=== PATIENT | male | born 1930 | race Caucasian/White ===

== ENCOUNTER 2017-07-03 06:06 | Emergency (ER) | payer OTHER ==
[2017-07-03] MEDS: ALBUTEROL 0.083% (NEB) 2.5 MG/3 ML AMP NEB (07:03)
[2017-07-03] MEDS: IPRATROPIUM (NEB) 0.5 MG/2.5 ML AMP NEB (07:03)
[2017-07-03 07:23] LABS: ADD MAN DIFF? NO
[2017-07-03 07:24] LABS: BASOPHILS % 0.6 % (0.0-2.0); EOSINOPHILS # 0.8 10^3/ul (0.0-0.5); EOSINOPHILS % 11.1 % (0.0-7.0); HEMOGLOBIN 10.7 g/dl (14.0-18.0); LYMPHOCYTES # 1.4 10^3/ul (0.8-2.9); LYMPHOCYTES % 20.4 % (15.0-51.0); MEAN CORPUSCULAR HEMOGLOBIN 30.8 pg (29.0-33.0); MEAN CORPUSCULAR HGB CONC 33.4 g/dl (32.0-37.0); MEAN CORPUSCULAR VOLUME 92.2 fl (82.0-101.0); MEAN PLATELET VOLUME 10.7 fl (7.4-10.4); MONOCYTE # 0.7 10^3/ul (0.3-0.9); MONOCYTES % 10.2 % (0.0-11.0); NEUTROPHILS % 57.6 % (39.0-77.0); PLATELET COUNT 140 10^3/UL (140-415); RED BLOOD COUNT 3.47 10^6/ul (4.70-6.10); RED CELL DISTRIBUTION WIDTH 14.4 % (11.5-14.5)
[2017-07-03 07:24] LABS: WHITE BLOOD COUNT 6.9 10^3/ul (4.8-10.8)
[2017-07-03 07:44] LABS: ANION GAP 16 (8-16); BLOOD UREA NITROGEN 23 mg/dl (7-20); CALCIUM 8.7 mg/dl (8.4-10.2); CARBON DIOXIDE 20 mmol/L (21-31); CHLORIDE 112 mmol/L (97-110); CREATININE 1.87 mg/dl (0.61-1.24); GLUCOSE 106 mg/dl (70-220); POTASSIUM 5.6 mmol/L (3.5-5.1); SODIUM 142 mmol/L (135-144)
[2017-07-03 07:56] LABS: TROPONIN-I < 0.012 ng/ml (0.000-0.120)
[2017-07-03] MEDS: SOD CHLORIDE 0.9% 500 ML IV (08:27)
== END 2017-07-03 09:48 | disposition home or self-care (01) ==
LOC: E/R 06:06
DX: I83.018 Varicose veins of right lower extremity with ulcer other part of lower leg (principal); R05 Cough; I12.9 Hypertensive chronic kidney disease with stage 1 through stage 4 chronic kidney disease, or unspecified chronic kidney disease; N18.9 Chronic kidney disease, unspecified; J44.0 Chronic obstructive pulmonary disease with (acute) lower respiratory infection; L97.819 Non-pressure chronic ulcer of other part of right lower leg with unspecified severity; L97.829 Non-pressure chronic ulcer of other part of left lower leg with unspecified severity; I83.028 Varicose veins of left lower extremity with ulcer other part of lower leg; Z87.891 Personal history of nicotine dependence; Z79.82 Long term (current) use of aspirin
CPT/HCPCS: 36415; 71045; 80048; 84484; 85025; 93005; 93922; 94664; 99285-25

== ENCOUNTER 2017-07-22 00:47 | Inpatient (IN) | payer OTHER ==
[2017-07-22] MEDS: METHYLPREDNISOLONE 125 MG INJ IV (02:03)
[2017-07-22] MEDS: LEVALBUTEROL (NEB) 1.25 MG/0.5 ML AMP INH (02:09)
[2017-07-22] MEDS: IPRATROPIUM (NEB) 0.5 MG/2.5 ML AMP INH (02:09)
[2017-07-22 02:35] LABS: ADD MAN DIFF? NO
[2017-07-22 02:38] LABS: WHITE BLOOD COUNT 8.8 10^3/ul (4.8-10.8)
[2017-07-22 02:38] LABS: BASOPHIL # 0.1 10^3/ul (0.0-0.1); BASOPHILS % 0.6 % (0.0-2.0); EOSINOPHILS # 0.6 10^3/ul (0.0-0.5); EOSINOPHILS % 7.1 % (0.0-7.0); HEMOGLOBIN 10.4 g/dl (14.0-18.0); LYMPHOCYTES # 0.8 10^3/ul (0.8-2.9); LYMPHOCYTES % 8.5 % (15.0-51.0); MEAN CORPUSCULAR HEMOGLOBIN 31.3 pg (29.0-33.0); MEAN CORPUSCULAR HGB CONC 34.7 g/dl (32.0-37.0); MEAN CORPUSCULAR VOLUME 90.4 fl (82.0-101.0); MEAN PLATELET VOLUME 10.6 fl (7.4-10.4); MONOCYTE # 0.6 10^3/ul (0.3-0.9); NEUTROPHIL # 6.8 10^3/ul (1.6-7.5); NEUTROPHILS % 76.5 % (39.0-77.0); PLATELET COUNT 162 10^3/UL (140-415); RED BLOOD COUNT 3.32 10^6/ul (4.70-6.10); RED CELL DISTRIBUTION WIDTH 13.4 % (11.5-14.5)
[2017-07-22 02:54] LABS: ADD UMIC YES; UR ASCORBIC ACID 40 mg/dL (NEGATIVE); UR BILIRUBIN (Dip) NEGATIVE (NEGATIVE); UR BLOOD (Dip) NEGATIVE (NEGATIVE); UR CLARITY CLEAR (CLEAR); UR COLOR YELLOW (YELLOW); UR GLUCOSE (Dip) NEGATIVE (NEGATIVE); UR KETONES (Dip) NEGATIVE (NEGATIVE); UR LEUKOCYTE ESTERASE (Dip) NEGATIVE Leu/ul (NEGATIVE); UR NITRITE (Dip) NEGATIVE (NEGATIVE); UR RBC 1 /HPF (0-5); UR SPECIFIC GRAVITY (Dip) 1.008 (1.003-1.030); UR TOTAL PROTEIN (Dip) 2+ mg/dl (NEGATIVE); UR UROBILINOGEN (Dip) NEGATIVE (NEGATIVE); UR WBC 1 /HPF (0-5)
[2017-07-22 02:57] LABS: LACTIC ACID 1.7 mmol/L (0.5-2.0)
[2017-07-22 02:57] LABS: ALANINE AMINOTRANSFERASE 26 IU/L (13-69); ALBUMIN 3.8 g/dl (3.3-4.9); ALBUMIN/GLOBULIN RATIO 1.15; ALKALINE PHOSPHATASE 81 IU/L (42-121); ANION GAP 15 (8-16); ASPARTATE AMINO TRANSFERASE 29 IU/L (15-46); BILIRUBIN,INDIRECT 0.6 mg/dl (0-1.1); BILIRUBIN,TOTAL 0.6 mg/dl (0.2-1.3); BLOOD UREA NITROGEN 12 mg/dl (7-20); CALCIUM 8.4 mg/dl (8.4-10.2); CARBON DIOXIDE 24 mmol/L (21-31); CHLORIDE 96 mmol/L (97-110); CREATININE 1.19 mg/dl (0.61-1.24); GLUCOSE 100 mg/dl (70-220); POTASSIUM 4.9 mmol/L (3.5-5.1); SODIUM 130 mmol/L (135-144); TOTAL PROTEIN 7.1 g/dl (6.1-8.1)
[2017-07-22 03:03] LABS: INR 1.07; PT RATIO 1.1
[2017-07-22 03:04] LABS: PARTIAL THROMBOPLASTIN TIME 32.6 Sec (25.0-35.0)
[2017-07-22 03:08] LABS: B-TYPE NATRIURETIC PEPTIDE 6940 PG/ML (0-450); TROPONIN-I 0.049 ng/ml (0.000-0.120)
[2017-07-22] MEDS: LEVOFLOXACIN 750MG/D5W (PMX) 150 ML IVPB (03:16)
[2017-07-22] MEDS: FUROSEMIDE 40 MG INJ IV ×2 (04:32→12:09)
[2017-07-22 04:50] LABS: LACTIC ACID 1.9 mmol/L (0.5-2.0)
[2017-07-22] MEDS ORDERED: NACL 0.9% 3 ML SYG IV (05:00)
[2017-07-22] MEDS ORDERED: DOCUSATE SODIUM 100 MG CAP PO (05:00)
[2017-07-22] MEDS ORDERED: ONDANSETRON 4 MG INJ IV (05:00)
[2017-07-22] MEDS ORDERED: BISACODYL (EC) 5 MG TAB PO (05:00)
[2017-07-22] MEDS: LEVALBUTEROL (NEB) 0.63 MG/3 ML AMP HHN ×5 (05:36→20:31)
[2017-07-22 06:40] LABS: LACTIC ACID 1.7 mmol/L (0.5-2.0)
[2017-07-22] MEDS: LEVOTHYROXINE 50 MCG TAB PO (07:00)
[2017-07-22] MEDS: LORATADINE 10 MG TAB PO (08:50)
[2017-07-22] MEDS: ASCORBIC ACID 500 MG TAB PO (08:51)
[2017-07-22] MEDS: VITAMIN B COMPLEX/VIT C CAP PO (08:51)
[2017-07-22] MEDS: PANTOPRAZOLE (EC) 40 MG TAB PO (08:51)
[2017-07-22] MEDS: LISINOPRIL 5 MG TAB PO (08:51)
[2017-07-22] MEDS ORDERED: FUROSEMIDE 40 MG INJ IV (09:00)
[2017-07-22] MEDS: APIXABAN 5 MG TABLET PO ×2 (12:09→21:25)
[2017-07-22] MEDS: MONTELUKAST 10 MG TAB PO (21:25)
[2017-07-22] MEDS: ACETAMINOPHEN 325 MG TAB PO (22:14)
[2017-07-23] MEDS: LEVALBUTEROL (NEB) 0.63 MG/3 ML AMP HHN ×6 (00:59→20:31)
[2017-07-23] MEDS: PANTOPRAZOLE (EC) 40 MG TAB PO (06:23)
[2017-07-23] MEDS: LEVOTHYROXINE 50 MCG TAB PO (06:23)
[2017-07-23 07:05] LABS: ADD MAN DIFF? NO
[2017-07-23 07:09] LABS: BASOPHILS % 0.1 % (0.0-2.0); HEMATOCRIT 30.5 % (42.0-52.0); HEMOGLOBIN 10.5 g/dl (14.0-18.0); LYMPHOCYTES # 0.6 10^3/ul (0.8-2.9); MEAN CORPUSCULAR HEMOGLOBIN 30.8 pg (29.0-33.0); MEAN CORPUSCULAR HGB CONC 34.4 g/dl (32.0-37.0); MEAN CORPUSCULAR VOLUME 89.4 fl (82.0-101.0); MONOCYTES % 8.9 % (0.0-11.0); NEUTROPHILS % 84.5 % (39.0-77.0); PLATELET COUNT 160 10^3/UL (140-415); RED BLOOD COUNT 3.41 10^6/ul (4.70-6.10); RED CELL DISTRIBUTION WIDTH 13.1 % (11.5-14.5)
[2017-07-23 07:09] LABS: WHITE BLOOD COUNT 10.6 10^3/ul (4.8-10.8)
[2017-07-23 07:37] LABS: ALANINE AMINOTRANSFERASE 32 IU/L (13-69); ALBUMIN 3.6 g/dl (3.3-4.9); ALKALINE PHOSPHATASE 72 IU/L (42-121); ANION GAP 16 (8-16); ASPARTATE AMINO TRANSFERASE 36 IU/L (15-46); BILIRUBIN,INDIRECT 0.5 mg/dl (0-1.1); BILIRUBIN,TOTAL 0.5 mg/dl (0.2-1.3); BLOOD UREA NITROGEN 23 mg/dl (7-20); CALCIUM 8.3 mg/dl (8.4-10.2); CARBON DIOXIDE 26 mmol/L (21-31); CHLORIDE 88 mmol/L (97-110); CHOLESTEROL 111 mg/dl (100-200); CREATININE 1.51 mg/dl (0.61-1.24); GLUCOSE 126 mg/dl (70-220); HDL CHOLESTEROL 37 mg/dl (31-75); LDL CHOLESTEROL,CALCULATED 61 mg/dl; POTASSIUM 5.7 mmol/L (3.5-5.1); SODIUM 124 mmol/L (135-144); TOTAL PROTEIN 6.6 g/dl (6.1-8.1); TRIGLYCERIDES 63 mg/dl (0-149)
[2017-07-23] MEDS: ASCORBIC ACID 500 MG TAB PO (08:19)
[2017-07-23] MEDS: APIXABAN 5 MG TABLET PO ×2 (08:19→20:24)
[2017-07-23] MEDS: VITAMIN B COMPLEX/VIT C CAP PO (08:19)
[2017-07-23] MEDS: LISINOPRIL 5 MG TAB PO (08:20)
[2017-07-23] MEDS: FUROSEMIDE 40 MG INJ IV (08:20)
[2017-07-23] MEDS: LORATADINE 10 MG TAB PO (08:20)
[2017-07-23 09:58] LABS: HEMOGLOBIN A1C 5.5 % (0-5.9)
[2017-07-23 11:48] LABS: ANION GAP 17 (8-16); BLOOD UREA NITROGEN 25 mg/dl (7-20); CALCIUM 8.3 mg/dl (8.4-10.2); CARBON DIOXIDE 24 mmol/L (21-31); CHLORIDE 88 mmol/L (97-110); CREATININE 1.54 mg/dl (0.61-1.24); GLUCOSE 131 mg/dl (70-220); POTASSIUM 5.4 mmol/L (3.5-5.1); SODIUM 124 mmol/L (135-144)
[2017-07-23] MEDS: LEVOFLOXACIN 500 MG TAB PO (12:04)
[2017-07-23] MEDS: GUAIFENESIN/DM 5ML CUP PO ×2 (12:04→20:24)
[2017-07-23] MEDS: NA POLYST SULFON 15 GM/60 ML BTL PO (12:13)
[2017-07-23] MEDS: MAGNESIUM SULFATE 4 GM/100 ML 100 ML IVPB (14:41)
[2017-07-23] MEDS: SOD CHLORIDE 0.9% 1,000 ML IV (14:42)
[2017-07-23 20:22] LABS: MAGNESIUM 2.4 mg/dl (1.7-2.5)
[2017-07-23 20:22] LABS: ANION GAP 16 (8-16); BLOOD UREA NITROGEN 27 mg/dl (7-20); CALCIUM 8.1 mg/dl (8.4-10.2); CARBON DIOXIDE 25 mmol/L (21-31); CHLORIDE 89 mmol/L (97-110); CREATININE 1.51 mg/dl (0.61-1.24); GLUCOSE 128 mg/dl (70-220); SODIUM 126 mmol/L (135-144)
[2017-07-23] MEDS: MONTELUKAST 10 MG TAB PO (20:24)
[2017-07-23] MEDS: ACETAMINOPHEN 325 MG TAB PO (20:24)
[2017-07-23] MEDS ORDERED: PENDING SANTYL ORDER FOR WOUND CARE XX (22:00)
[2017-07-24] MEDS: LEVALBUTEROL (NEB) 0.63 MG/3 ML AMP HHN ×6 (00:29→20:57)
[2017-07-24] MEDS: GUAIFENESIN/DM 5ML CUP PO ×2 (00:53→05:22)
[2017-07-24] MEDS: LEVOFLOXACIN 250 MG TAB PO (05:22)
[2017-07-24] MEDS: PANTOPRAZOLE (EC) 40 MG TAB PO (05:22)
[2017-07-24 06:33] LABS: ADD MAN DIFF? NO
[2017-07-24 06:39] LABS: BASOPHILS % 0.3 % (0.0-2.0); EOSINOPHILS # 0.1 10^3/ul (0.0-0.5); EOSINOPHILS % 1.5 % (0.0-7.0); HEMATOCRIT 27.3 % (42.0-52.0); HEMOGLOBIN 9.5 g/dl (14.0-18.0); LYMPHOCYTES # 0.9 10^3/ul (0.8-2.9); LYMPHOCYTES % 11.1 % (15.0-51.0); MEAN CORPUSCULAR HGB CONC 34.8 g/dl (32.0-37.0); MEAN CORPUSCULAR VOLUME 89.2 fl (82.0-101.0); MEAN PLATELET VOLUME 10.9 fl (7.4-10.4); MONOCYTE # 0.6 10^3/ul (0.3-0.9); MONOCYTES % 8.1 % (0.0-11.0); NEUTROPHIL # 6.1 10^3/ul (1.6-7.5); NEUTROPHILS % 78.7 % (39.0-77.0); PLATELET COUNT 143 10^3/UL (140-415); RED BLOOD COUNT 3.06 10^6/ul (4.70-6.10); RED CELL DISTRIBUTION WIDTH 13.2 % (11.5-14.5)
[2017-07-24 06:39] LABS: WHITE BLOOD COUNT 7.8 10^3/ul (4.8-10.8)
[2017-07-24] MEDS: LEVOTHYROXINE 50 MCG TAB PO (06:47)
[2017-07-24 06:57] LABS: ANION GAP 15 (8-16); BLOOD UREA NITROGEN 29 mg/dl (7-20); CALCIUM 7.7 mg/dl (8.4-10.2); CARBON DIOXIDE 26 mmol/L (21-31); CHLORIDE 88 mmol/L (97-110); CREATININE 1.57 mg/dl (0.61-1.24); GLUCOSE 98 mg/dl (70-220); MAGNESIUM 1.9 mg/dl (1.7-2.5); POTASSIUM 4.2 mmol/L (3.5-5.1); SODIUM 125 mmol/L (135-144)
[2017-07-24] MEDS: FUROSEMIDE 40 MG INJ IV (08:18)
[2017-07-24] MEDS: ASCORBIC ACID 500 MG TAB PO (08:18)
[2017-07-24] MEDS: APIXABAN 5 MG TABLET PO ×2 (08:18→20:50)
[2017-07-24] MEDS: VITAMIN B COMPLEX/VIT C CAP PO (08:18)
[2017-07-24] MEDS: AMLODIPINE 5 MG TAB PO (08:19)
[2017-07-24] MEDS: LORATADINE 10 MG TAB PO (08:19)
[2017-07-24] MEDS ORDERED: AMLODIPINE 5 MG TAB NGT (09:00)
[2017-07-24] MEDS: METHYLPREDNISOLONE 40 MG INJ IV ×2 (12:48→22:17)
[2017-07-24] MEDS ORDERED: METOPROLOL 5 MG INJ IV (14:30)
[2017-07-24] MEDS: SOD CHLORIDE 0.9% 1,000 ML IV (16:25)
[2017-07-24] MEDS: MONTELUKAST 10 MG TAB PO (20:50)
[2017-07-24] MEDS: METOPROLOL (XL) 25 MG TAB PO (20:50)
[2017-07-25] MEDS: LEVALBUTEROL (NEB) 0.63 MG/3 ML AMP HHN ×6 (01:21→20:54)
[2017-07-25] MEDS: METHYLPREDNISOLONE 40 MG INJ IV ×3 (05:20→20:46)
[2017-07-25] MEDS: LEVOFLOXACIN 250 MG TAB PO (05:20)
[2017-07-25] MEDS: PANTOPRAZOLE (EC) 40 MG TAB PO (05:21)
[2017-07-25] MEDS: SOD CHLORIDE 0.9% 1,000 ML IV (05:27)
[2017-07-25] MEDS: LEVOTHYROXINE 50 MCG TAB PO (06:05)
[2017-07-25 07:41] LABS: ADD MAN DIFF? NO
[2017-07-25 07:46] LABS: WHITE BLOOD COUNT 6.9 10^3/ul (4.8-10.8)
[2017-07-25 07:46] LABS: ABNORMAL IP MESSAGE 1; HEMOGLOBIN 10.2 g/dl (14.0-18.0); LYMPHOCYTES # 0.4 10^3/ul (0.8-2.9); LYMPHOCYTES % 6.3 % (15.0-51.0); MEAN CORPUSCULAR HEMOGLOBIN 30.3 pg (29.0-33.0); MEAN PLATELET VOLUME 11.5 fl (7.4-10.4); MONOCYTE # 0.1 10^3/ul (0.3-0.9); NEUTROPHIL # 6.3 10^3/ul (1.6-7.5); NEUTROPHILS % 91.4 % (39.0-77.0); PLATELET COUNT 158 10^3/UL (140-415); POSITIVE DIFF @See below; RED BLOOD COUNT 3.37 10^6/ul (4.70-6.10); RED CELL DISTRIBUTION WIDTH 12.9 % (11.5-14.5)
[2017-07-25 08:01] LABS: ANION GAP 17 (8-16); BLOOD UREA NITROGEN 36 mg/dl (7-20); CALCIUM 8.1 mg/dl (8.4-10.2); CARBON DIOXIDE 26 mmol/L (21-31); CHLORIDE 87 mmol/L (97-110); CREATININE 1.53 mg/dl (0.61-1.24); GLUCOSE 149 mg/dl (70-220); POTASSIUM 4.3 mmol/L (3.5-5.1); SODIUM 126 mmol/L (135-144)
[2017-07-25] MEDS: GUAIFENESIN/DM 5ML CUP PO (08:12)
[2017-07-25] MEDS: VITAMIN B COMPLEX/VIT C CAP PO (08:12)
[2017-07-25] MEDS: LORATADINE 10 MG TAB PO (08:12)
[2017-07-25] MEDS: ASCORBIC ACID 500 MG TAB PO (08:13)
[2017-07-25] MEDS: FUROSEMIDE 40 MG INJ IV (08:13)
[2017-07-25] MEDS: APIXABAN 5 MG TABLET PO ×2 (08:13→20:45)
[2017-07-25] MEDS: METOPROLOL (XL) 25 MG TAB PO ×2 (08:13→20:50)
[2017-07-25] MEDS ORDERED: FUROSEMIDE 20 MG INJ IV (12:00)
[2017-07-25] MEDS: SODIUM CHLORIDE 1 GM TAB PO ×2 (13:17→20:45)
[2017-07-25] MEDS: MONTELUKAST 10 MG TAB PO (20:45)
[2017-07-26] MEDS: LEVALBUTEROL (NEB) 0.63 MG/3 ML AMP HHN ×5 (01:16→20:38)
[2017-07-26] MEDS: METHYLPREDNISOLONE 40 MG INJ IV ×3 (06:11→21:13)
[2017-07-26] MEDS: PANTOPRAZOLE (EC) 40 MG TAB PO (06:11)
[2017-07-26] MEDS: LEVOTHYROXINE 50 MCG TAB PO (06:11)
[2017-07-26] MEDS: LEVOFLOXACIN 250 MG TAB PO (06:12)
[2017-07-26 07:13] LABS: ADD MAN DIFF? NO
[2017-07-26 07:17] LABS: WHITE BLOOD COUNT 6.5 10^3/ul (4.8-10.8)
[2017-07-26 07:17] LABS: ABNORMAL IP MESSAGE 1; HEMATOCRIT 27.5 % (42.0-52.0); HEMOGLOBIN 9.5 g/dl (14.0-18.0); LYMPHOCYTES # 0.4 10^3/ul (0.8-2.9); LYMPHOCYTES % 6.6 % (15.0-51.0); MEAN CORPUSCULAR HGB CONC 34.5 g/dl (32.0-37.0); MEAN CORPUSCULAR VOLUME 89.9 fl (82.0-101.0); MEAN PLATELET VOLUME 11.6 fl (7.4-10.4); MONOCYTE # 0.4 10^3/ul (0.3-0.9); MONOCYTES % 5.9 % (0.0-11.0); NEUTROPHIL # 5.7 10^3/ul (1.6-7.5); PLATELET COUNT 150 10^3/UL (140-415); POSITIVE DIFF @See below; RED BLOOD COUNT 3.06 10^6/ul (4.70-6.10); RED CELL DISTRIBUTION WIDTH 13.1 % (11.5-14.5)
[2017-07-26 07:39] LABS: ANION GAP 15 (8-16); BLOOD UREA NITROGEN 48 mg/dl (7-20); CALCIUM 8.2 mg/dl (8.4-10.2); CARBON DIOXIDE 27 mmol/L (21-31); CHLORIDE 91 mmol/L (97-110); CREATININE 1.49 mg/dl (0.61-1.24); GLUCOSE 152 mg/dl (70-220); POTASSIUM 4.6 mmol/L (3.5-5.1); SODIUM 128 mmol/L (135-144)
[2017-07-26] MEDS: FUROSEMIDE 40 MG INJ IV ×2 (09:17→18:40)
[2017-07-26] MEDS: ASCORBIC ACID 500 MG TAB PO (09:17)
[2017-07-26] MEDS: SODIUM CHLORIDE 1 GM TAB PO ×2 (09:17→21:14)
[2017-07-26] MEDS: METOPROLOL (XL) 25 MG TAB PO ×2 (09:17→21:15)
[2017-07-26] MEDS: LORATADINE 10 MG TAB PO (09:17)
[2017-07-26] MEDS: VITAMIN B COMPLEX/VIT C CAP PO (09:17)
[2017-07-26] MEDS: APIXABAN 5 MG TABLET PO ×2 (09:17→21:14)
[2017-07-26] MEDS: MONTELUKAST 10 MG TAB PO (21:13)
[2017-07-26] MEDS: hydrALAzine 20 MG INJ IV (23:54)
[2017-07-27] MEDS: LEVALBUTEROL (NEB) 0.63 MG/3 ML AMP HHN ×6 (01:01→20:16)
[2017-07-27] MEDS: GUAIFENESIN/DM 5ML CUP PO (02:14)
[2017-07-27] MEDS: METHYLPREDNISOLONE 40 MG INJ IV ×3 (05:34→21:18)
[2017-07-27] MEDS: PANTOPRAZOLE (EC) 40 MG TAB PO (05:34)
[2017-07-27] MEDS: FUROSEMIDE 40 MG INJ IV ×2 (05:34→17:24)
[2017-07-27] MEDS: LEVOFLOXACIN 250 MG TAB PO (05:34)
[2017-07-27] MEDS: LEVOTHYROXINE 50 MCG TAB PO (06:44)
[2017-07-27 07:37] LABS: ADD MAN DIFF? NO
[2017-07-27 07:41] LABS: WHITE BLOOD COUNT 8.5 10^3/ul (4.8-10.8)
[2017-07-27 07:41] LABS: ABNORMAL IP MESSAGE 1; BASOPHILS % 0.1 % (0.0-2.0); HEMATOCRIT 30.2 % (42.0-52.0); HEMOGLOBIN 10.2 g/dl (14.0-18.0); LYMPHOCYTES # 0.4 10^3/ul (0.8-2.9); LYMPHOCYTES % 4.7 % (15.0-51.0); MEAN CORPUSCULAR HEMOGLOBIN 30.5 pg (29.0-33.0); MEAN CORPUSCULAR HGB CONC 33.8 g/dl (32.0-37.0); MEAN CORPUSCULAR VOLUME 90.4 fl (82.0-101.0); MEAN PLATELET VOLUME 11.4 fl (7.4-10.4); MONOCYTE # 0.4 10^3/ul (0.3-0.9); MONOCYTES % 4.4 % (0.0-11.0); NEUTROPHIL # 7.6 10^3/ul (1.6-7.5); NEUTROPHILS % 90.1 % (39.0-77.0); PLATELET COUNT 168 10^3/UL (140-415); POSITIVE DIFF @See below; RED BLOOD COUNT 3.34 10^6/ul (4.70-6.10); RED CELL DISTRIBUTION WIDTH 13.2 % (11.5-14.5)
[2017-07-27 08:44] LABS: ANION GAP 16 (8-16); BLOOD UREA NITROGEN 63 mg/dl (7-20); CALCIUM 8.3 mg/dl (8.4-10.2); CARBON DIOXIDE 28 mmol/L (21-31); CHLORIDE 93 mmol/L (97-110); CREATININE 1.49 mg/dl (0.61-1.24); GLUCOSE 145 mg/dl (70-220); POTASSIUM 4.2 mmol/L (3.5-5.1); SODIUM 133 mmol/L (135-144)
[2017-07-27] MEDS: VITAMIN B COMPLEX/VIT C CAP PO (09:43)
[2017-07-27] MEDS: ASCORBIC ACID 500 MG TAB PO (09:43)
[2017-07-27] MEDS: LORATADINE 10 MG TAB PO (09:43)
[2017-07-27] MEDS: SODIUM CHLORIDE 1 GM TAB PO ×2 (09:43→21:18)
[2017-07-27] MEDS: APIXABAN 5 MG TABLET PO ×2 (09:44→21:18)
[2017-07-27] MEDS: METOPROLOL (XL) 25 MG TAB PO (09:44)
[2017-07-27] MEDS: ACETAMINOPHEN 325 MG TAB PO (10:55)
[2017-07-27] MEDS: MAGNESIUM SULFATE 2 GM/50 ML 50 ML IVPB (18:31)
[2017-07-27 19:18] LABS: TROPONIN-I 0.141 ng/ml (0.000-0.120)
[2017-07-27] MEDS: MONTELUKAST 10 MG TAB PO (21:18)
[2017-07-27] MEDS: METOPROLOL (XL) 50 MG TAB PO (21:19)
[2017-07-28] MEDS: LEVALBUTEROL (NEB) 0.63 MG/3 ML AMP HHN ×6 (00:43→22:00)
[2017-07-28] MEDS: GUAIFENESIN/DM 5ML CUP PO ×3 (01:12→20:40)
[2017-07-28 02:16] LABS: TROPONIN-I 0.138 ng/ml (0.000-0.120)
[2017-07-28] MEDS: METHYLPREDNISOLONE 40 MG INJ IV ×3 (05:15→21:46)
[2017-07-28] MEDS: LEVOFLOXACIN 250 MG TAB PO (05:15)
[2017-07-28] MEDS: FUROSEMIDE 40 MG INJ IV ×2 (05:15→17:31)
[2017-07-28] MEDS: PANTOPRAZOLE (EC) 40 MG TAB PO (05:16)
[2017-07-28] MEDS: LEVOTHYROXINE 50 MCG TAB PO (06:11)
[2017-07-28 07:22] LABS: ADD MAN DIFF? NO
[2017-07-28 07:37] LABS: ABNORMAL IP MESSAGE 1; HEMATOCRIT 29.6 % (42.0-52.0); HEMOGLOBIN 10.2 g/dl (14.0-18.0); LYMPHOCYTES # 0.3 10^3/ul (0.8-2.9); LYMPHOCYTES % 4.8 % (15.0-51.0); MEAN CORPUSCULAR HEMOGLOBIN 30.8 pg (29.0-33.0); MEAN CORPUSCULAR HGB CONC 34.5 g/dl (32.0-37.0); MEAN CORPUSCULAR VOLUME 89.4 fl (82.0-101.0); MONOCYTE # 0.3 10^3/ul (0.3-0.9); MONOCYTES % 4.7 % (0.0-11.0); NEUTROPHIL # 6.3 10^3/ul (1.6-7.5); NEUTROPHILS % 90.1 % (39.0-77.0); PLATELET COUNT 176 10^3/UL (140-415); POSITIVE DIFF @See below; RED BLOOD COUNT 3.31 10^6/ul (4.70-6.10); RED CELL DISTRIBUTION WIDTH 13.2 % (11.5-14.5)
[2017-07-28 08:03] LABS: ANION GAP 13 (8-16); BLOOD UREA NITROGEN 69 mg/dl (7-20); CALCIUM 8.3 mg/dl (8.4-10.2); CARBON DIOXIDE 29 mmol/L (21-31); CHLORIDE 93 mmol/L (97-110); CREATININE 1.53 mg/dl (0.61-1.24); GLUCOSE 151 mg/dl (70-220); POTASSIUM 3.6 mmol/L (3.5-5.1); SODIUM 131 mmol/L (135-144)
[2017-07-28] MEDS: SODIUM CHLORIDE 1 GM TAB PO ×2 (08:58→20:40)
[2017-07-28] MEDS: VITAMIN B COMPLEX/VIT C CAP PO (08:58)
[2017-07-28] MEDS: ASCORBIC ACID 500 MG TAB PO (08:58)
[2017-07-28] MEDS: APIXABAN 5 MG TABLET PO ×2 (08:58→20:40)
[2017-07-28] MEDS: LORATADINE 10 MG TAB PO (08:59)
[2017-07-28] MEDS: METOPROLOL (XL) 50 MG TAB PO ×2 (08:59→20:41)
[2017-07-28] MEDS: ACETAMINOPHEN 325 MG TAB PO ×2 (15:06→21:46)
[2017-07-28] MEDS: MONTELUKAST 10 MG TAB PO (20:41)
[2017-07-29] MEDS: LEVALBUTEROL (NEB) 0.63 MG/3 ML AMP HHN ×6 (01:23→21:41)
[2017-07-29] MEDS: GUAIFENESIN/DM 5ML CUP PO ×2 (02:43→21:38)
[2017-07-29] MEDS: PANTOPRAZOLE (EC) 40 MG TAB PO (06:12)
[2017-07-29] MEDS: LEVOTHYROXINE 50 MCG TAB PO (06:13)
[2017-07-29] MEDS: METHYLPREDNISOLONE 40 MG INJ IV ×3 (06:13→22:54)
[2017-07-29] MEDS: LEVOFLOXACIN 250 MG TAB PO (06:13)
[2017-07-29] MEDS: FUROSEMIDE 40 MG INJ IV ×2 (06:17→17:40)
[2017-07-29 07:03] LABS: ADD MAN DIFF? NO
[2017-07-29 07:16] LABS: BASOPHILS % 0.1 % (0.0-2.0); HEMATOCRIT 33.4 % (42.0-52.0); HEMOGLOBIN 11.3 g/dl (14.0-18.0); LYMPHOCYTES # 0.6 10^3/ul (0.8-2.9); LYMPHOCYTES % 7.2 % (15.0-51.0); MEAN CORPUSCULAR HEMOGLOBIN 30.9 pg (29.0-33.0); MEAN CORPUSCULAR HGB CONC 33.8 g/dl (32.0-37.0); MEAN CORPUSCULAR VOLUME 91.3 fl (82.0-101.0); MEAN PLATELET VOLUME 11.1 fl (7.4-10.4); MONOCYTE # 0.5 10^3/ul (0.3-0.9); NEUTROPHIL # 7.6 10^3/ul (1.6-7.5); NEUTROPHILS % 85.8 % (39.0-77.0); PLATELET COUNT 201 10^3/UL (140-415); RED BLOOD COUNT 3.66 10^6/ul (4.70-6.10); RED CELL DISTRIBUTION WIDTH 13.2 % (11.5-14.5)
[2017-07-29 07:16] LABS: WHITE BLOOD COUNT 8.8 10^3/ul (4.8-10.8)
[2017-07-29 07:43] LABS: ANION GAP 18 (8-16); BLOOD UREA NITROGEN 82 mg/dl (7-20); CALCIUM 8.6 mg/dl (8.4-10.2); CARBON DIOXIDE 32 mmol/L (21-31); CHLORIDE 90 mmol/L (97-110); CREATININE 1.73 mg/dl (0.61-1.24); GLUCOSE 159 mg/dl (70-220); POTASSIUM 3.8 mmol/L (3.5-5.1); SODIUM 136 mmol/L (135-144)
[2017-07-29] MEDS: SODIUM CHLORIDE 1 GM TAB PO ×2 (09:19→21:35)
[2017-07-29] MEDS: LORATADINE 10 MG TAB PO (09:20)
[2017-07-29] MEDS: VITAMIN B COMPLEX/VIT C CAP PO (09:20)
[2017-07-29] MEDS: METOPROLOL (XL) 50 MG TAB PO ×2 (09:20→21:36)
[2017-07-29] MEDS: ASCORBIC ACID 500 MG TAB PO (09:20)
[2017-07-29] MEDS: APIXABAN 5 MG TABLET PO ×2 (09:20→21:36)
[2017-07-29] MEDS: ACETAMINOPHEN 325 MG TAB PO (16:51)
[2017-07-29] MEDS: MONTELUKAST 10 MG TAB PO (21:36)
[2017-07-30] MEDS: LEVALBUTEROL (NEB) 0.63 MG/3 ML AMP HHN ×6 (01:10→21:00)
[2017-07-30] MEDS: PANTOPRAZOLE (EC) 40 MG TAB PO (05:32)
[2017-07-30] MEDS: METHYLPREDNISOLONE 40 MG INJ IV ×3 (05:32→21:21)
[2017-07-30 06:50] LABS: ADD MAN DIFF? NO
[2017-07-30 06:54] LABS: ABNORMAL IP MESSAGE 1; BASOPHILS % 0.1 % (0.0-2.0); HEMATOCRIT 34.3 % (42.0-52.0); HEMOGLOBIN 11.5 g/dl (14.0-18.0); LYMPHOCYTES # 0.6 10^3/ul (0.8-2.9); LYMPHOCYTES % 5.9 % (15.0-51.0); MEAN CORPUSCULAR HEMOGLOBIN 30.6 pg (29.0-33.0); MEAN CORPUSCULAR HGB CONC 33.5 g/dl (32.0-37.0); MEAN CORPUSCULAR VOLUME 91.2 fl (82.0-101.0); MEAN PLATELET VOLUME 11.3 fl (7.4-10.4); MONOCYTE # 0.3 10^3/ul (0.3-0.9); MONOCYTES % 3.4 % (0.0-11.0); NEUTROPHIL # 8.9 10^3/ul (1.6-7.5); NEUTROPHILS % 89.8 % (39.0-77.0); PLATELET COUNT 209 10^3/UL (140-415); POSITIVE DIFF @See below; RED BLOOD COUNT 3.76 10^6/ul (4.70-6.10); RED CELL DISTRIBUTION WIDTH 13.2 % (11.5-14.5)
[2017-07-30 06:54] LABS: WHITE BLOOD COUNT 9.9 10^3/ul (4.8-10.8)
[2017-07-30] MEDS: LEVOTHYROXINE 50 MCG TAB PO (06:56)
[2017-07-30] MEDS: FUROSEMIDE 40 MG INJ IV ×2 (06:58→17:55)
[2017-07-30 07:17] LABS: ANION GAP 18 (8-16); BLOOD UREA NITROGEN 87 mg/dl (7-20); CALCIUM 8.4 mg/dl (8.4-10.2); CARBON DIOXIDE 31 mmol/L (21-31); CHLORIDE 91 mmol/L (97-110); CREATININE 1.67 mg/dl (0.61-1.24); GLUCOSE 179 mg/dl (70-220); POTASSIUM 4.2 mmol/L (3.5-5.1); SODIUM 136 mmol/L (135-144)
[2017-07-30] MEDS: APIXABAN 5 MG TABLET PO ×2 (09:41→21:22)
[2017-07-30] MEDS: SODIUM CHLORIDE 1 GM TAB PO ×2 (09:41→21:21)
[2017-07-30] MEDS: LORATADINE 10 MG TAB PO (09:41)
[2017-07-30] MEDS: VITAMIN B COMPLEX/VIT C CAP PO (09:41)
[2017-07-30] MEDS: ASCORBIC ACID 500 MG TAB PO (09:42)
[2017-07-30] MEDS: METOPROLOL (XL) 50 MG TAB PO ×2 (09:42→21:22)
[2017-07-30] MEDS: GUAIFENESIN/DM 5ML CUP PO (21:21)
[2017-07-30] MEDS: MONTELUKAST 10 MG TAB PO (21:22)
[2017-07-31] MEDS: LEVALBUTEROL (NEB) 0.63 MG/3 ML AMP HHN ×6 (01:35→21:08)
[2017-07-31] MEDS: METHYLPREDNISOLONE 40 MG INJ IV (05:09)
[2017-07-31] MEDS: PANTOPRAZOLE (EC) 40 MG TAB PO (05:09)
[2017-07-31] MEDS: FUROSEMIDE 40 MG INJ IV ×2 (06:42→17:24)
[2017-07-31] MEDS: LEVOTHYROXINE 50 MCG TAB PO (06:42)
[2017-07-31] MEDS: VITAMIN B COMPLEX/VIT C CAP PO (09:08)
[2017-07-31] MEDS: LORATADINE 10 MG TAB PO (09:08)
[2017-07-31] MEDS: METOPROLOL (XL) 50 MG TAB PO ×2 (09:09→21:53)
[2017-07-31] MEDS: SODIUM CHLORIDE 1 GM TAB PO ×2 (09:09→21:53)
[2017-07-31] MEDS: APIXABAN 5 MG TABLET PO ×2 (09:09→21:53)
[2017-07-31] MEDS: ASCORBIC ACID 500 MG TAB PO (09:09)
[2017-07-31] MEDS: MONTELUKAST 10 MG TAB PO (21:53)
[2017-08-01] MEDS: LEVALBUTEROL (NEB) 0.63 MG/3 ML AMP HHN ×6 (01:15→20:31)
[2017-08-01] MEDS: PANTOPRAZOLE (EC) 40 MG TAB PO (06:30)
[2017-08-01] MEDS: LEVOTHYROXINE 50 MCG TAB PO (06:30)
[2017-08-01 07:17] LABS: ADD MAN DIFF? NO
[2017-08-01 07:33] LABS: WHITE BLOOD COUNT 13.2 10^3/ul (4.8-10.8)
[2017-08-01 07:33] LABS: BASOPHILS % 0.2 % (0.0-2.0); EOSINOPHILS # 0.1 10^3/ul (0.0-0.5); EOSINOPHILS % 0.5 % (0.0-7.0); HEMATOCRIT 32.7 % (42.0-52.0); HEMOGLOBIN 11.1 g/dl (14.0-18.0); LYMPHOCYTES # 1.8 10^3/ul (0.8-2.9); LYMPHOCYTES % 13.4 % (15.0-51.0); MEAN CORPUSCULAR HEMOGLOBIN 30.6 pg (29.0-33.0); MEAN CORPUSCULAR HGB CONC 33.9 g/dl (32.0-37.0); MEAN CORPUSCULAR VOLUME 90.1 fl (82.0-101.0); MEAN PLATELET VOLUME 11.3 fl (7.4-10.4); MONOCYTE # 1.4 10^3/ul (0.3-0.9); MONOCYTES % 10.4 % (0.0-11.0); NEUTROPHIL # 9.8 10^3/ul (1.6-7.5); NEUTROPHILS % 74.2 % (39.0-77.0); PLATELET COUNT 194 10^3/UL (140-415); RED BLOOD COUNT 3.63 10^6/ul (4.70-6.10); RED CELL DISTRIBUTION WIDTH 13.1 % (11.5-14.5)
[2017-08-01 07:51] LABS: ANION GAP 15 (8-16); BLOOD UREA NITROGEN 98 mg/dl (7-20); CALCIUM 8.1 mg/dl (8.4-10.2); CARBON DIOXIDE 37 mmol/L (21-31); CHLORIDE 84 mmol/L (97-110); CREATININE 1.55 mg/dl (0.61-1.24); GLUCOSE 98 mg/dl (70-220); POTASSIUM 3.1 mmol/L (3.5-5.1); SODIUM 133 mmol/L (135-144)
[2017-08-01] MEDS: VITAMIN B COMPLEX/VIT C CAP PO (09:15)
[2017-08-01] MEDS: SODIUM CHLORIDE 1 GM TAB PO ×2 (09:15→21:40)
[2017-08-01] MEDS: ASCORBIC ACID 500 MG TAB PO (09:15)
[2017-08-01] MEDS: predniSONE 20 MG TAB PO (09:16)
[2017-08-01] MEDS: LORATADINE 10 MG TAB PO (09:16)
[2017-08-01] MEDS: METOPROLOL (XL) 50 MG TAB PO ×2 (09:16→21:41)
[2017-08-01] MEDS: APIXABAN 5 MG TABLET PO ×2 (09:18→21:40)
[2017-08-01] MEDS: FUROSEMIDE 20 MG INJ IV (09:18)
[2017-08-01] MEDS: POTASSIUM CHLORIDE 20 MEQ POWDER FOR ORAL SOLN PO (15:27)
[2017-08-01 15:45] LABS: ADD UMIC NO; UR ASCORBIC ACID NEGATIVE (NEGATIVE); UR BILIRUBIN (Dip) NEGATIVE (NEGATIVE); UR BLOOD (Dip) NEGATIVE (NEGATIVE); UR CLARITY CLEAR (CLEAR); UR COLOR YELLOW (YELLOW); UR GLUCOSE (Dip) NEGATIVE (NEGATIVE); UR KETONES (Dip) NEGATIVE (NEGATIVE); UR LEUKOCYTE ESTERASE (Dip) NEGATIVE Leu/ul (NEGATIVE); UR NITRITE (Dip) NEGATIVE (NEGATIVE); UR SPECIFIC GRAVITY (Dip) 1.008 (1.003-1.030); UR TOTAL PROTEIN (Dip) NEGATIVE (NEGATIVE); UR UROBILINOGEN (Dip) NEGATIVE (NEGATIVE)
[2017-08-01] MEDS: NYSTATIN SUSP 5 ML CUP PO ×2 (18:53→21:40)
[2017-08-01] MEDS: ALBUMIN HUMAN 25% 100 ML IV (18:57)
[2017-08-01] MEDS: MONTELUKAST 10 MG TAB PO (21:40)
[2017-08-02] MEDS: LEVALBUTEROL (NEB) 0.63 MG/3 ML AMP HHN ×6 (01:20→20:18)
[2017-08-02] MEDS: PANTOPRAZOLE (EC) 40 MG TAB PO (06:14)
[2017-08-02] MEDS: LEVOTHYROXINE 50 MCG TAB PO (06:15)
[2017-08-02] MEDS: METOPROLOL (XL) 50 MG TAB PO ×2 (08:05→20:56)
[2017-08-02 08:16] LABS: ADD MAN DIFF? NO
[2017-08-02 08:17] LABS: WHITE BLOOD COUNT 12.3 10^3/ul (4.8-10.8)
[2017-08-02 08:17] LABS: BASOPHILS % 0.2 % (0.0-2.0); EOSINOPHILS # 0.7 10^3/ul (0.0-0.5); EOSINOPHILS % 5.3 % (0.0-7.0); HEMATOCRIT 33.6 % (42.0-52.0); HEMOGLOBIN 11.3 g/dl (14.0-18.0); LYMPHOCYTES # 1.4 10^3/ul (0.8-2.9); LYMPHOCYTES % 11.5 % (15.0-51.0); MEAN CORPUSCULAR HEMOGLOBIN 30.9 pg (29.0-33.0); MEAN CORPUSCULAR HGB CONC 33.6 g/dl (32.0-37.0); MEAN CORPUSCULAR VOLUME 91.8 fl (82.0-101.0); MEAN PLATELET VOLUME 10.9 fl (7.4-10.4); MONOCYTE # 1.1 10^3/ul (0.3-0.9); MONOCYTES % 9.1 % (0.0-11.0); NEUTROPHIL # 8.9 10^3/ul (1.6-7.5); NEUTROPHILS % 72.5 % (39.0-77.0); PLATELET COUNT 174 10^3/UL (140-415); RED BLOOD COUNT 3.66 10^6/ul (4.70-6.10); RED CELL DISTRIBUTION WIDTH 13.1 % (11.5-14.5)
[2017-08-02 08:50] LABS: ANION GAP 17 (8-16); BLOOD UREA NITROGEN 80 mg/dl (7-20); CALCIUM 8.1 mg/dl (8.4-10.2); CARBON DIOXIDE 34 mmol/L (21-31); CHLORIDE 86 mmol/L (97-110); CREATININE 1.42 mg/dl (0.61-1.24); GLUCOSE 111 mg/dl (70-220); POTASSIUM 3.3 mmol/L (3.5-5.1); SODIUM 134 mmol/L (135-144)
[2017-08-02] MEDS: VITAMIN B COMPLEX/VIT C CAP PO (09:26)
[2017-08-02] MEDS: ASCORBIC ACID 500 MG TAB PO (09:26)
[2017-08-02] MEDS: SODIUM CHLORIDE 1 GM TAB PO ×2 (09:26→20:57)
[2017-08-02] MEDS: LORATADINE 10 MG TAB PO (09:27)
[2017-08-02] MEDS: predniSONE 10 MG TAB NGT (09:27)
[2017-08-02] MEDS: APIXABAN 5 MG TABLET PO ×2 (09:28→20:58)
[2017-08-02] MEDS: NYSTATIN SUSP 5 ML CUP PO ×4 (09:28→20:57)
[2017-08-02] MEDS: SOD CHLORIDE 0.9% 500 ML IV (11:19)
[2017-08-02] MEDS: ALBUMIN HUMAN 25% 100 ML IV ×2 (13:28→18:36)
[2017-08-02 13:58] LABS: ADD UMIC NO; UR ASCORBIC ACID 40 mg/dL (NEGATIVE); UR BILIRUBIN (Dip) NEGATIVE (NEGATIVE); UR BLOOD (Dip) NEGATIVE (NEGATIVE); UR CLARITY CLEAR (CLEAR); UR COLOR YELLOW (YELLOW); UR GLUCOSE (Dip) NEGATIVE (NEGATIVE); UR KETONES (Dip) NEGATIVE (NEGATIVE); UR LEUKOCYTE ESTERASE (Dip) NEGATIVE Leu/ul (NEGATIVE); UR NITRITE (Dip) NEGATIVE (NEGATIVE); UR SPECIFIC GRAVITY (Dip) 1.011 (1.003-1.030); UR TOTAL PROTEIN (Dip) NEGATIVE (NEGATIVE); UR UROBILINOGEN (Dip) NEGATIVE (NEGATIVE)
[2017-08-02] MEDS: MONTELUKAST 10 MG TAB PO (20:56)
[2017-08-02] MEDS: ACETAMINOPHEN 325 MG TAB PO (20:57)
[2017-08-03] MEDS: LEVALBUTEROL (NEB) 0.63 MG/3 ML AMP HHN ×6 (00:31→20:50)
[2017-08-03] MEDS: ALBUMIN HUMAN 25% 100 ML IV (03:44)
[2017-08-03] MEDS: LEVOTHYROXINE 50 MCG TAB PO (05:24)
[2017-08-03] MEDS: PANTOPRAZOLE (EC) 40 MG TAB PO (05:24)
[2017-08-03] MEDS: predniSONE 10 MG TAB NGT (08:31)
[2017-08-03] MEDS: APIXABAN 5 MG TABLET PO ×2 (08:32→20:03)
[2017-08-03] MEDS: VITAMIN B COMPLEX/VIT C CAP PO (08:32)
[2017-08-03] MEDS: SODIUM CHLORIDE 1 GM TAB PO ×2 (08:32→20:01)
[2017-08-03] MEDS: LORATADINE 10 MG TAB PO (08:32)
[2017-08-03] MEDS: METOPROLOL (XL) 50 MG TAB PO ×2 (08:33→20:03)
[2017-08-03] MEDS: ASCORBIC ACID 500 MG TAB PO (08:33)
[2017-08-03] MEDS: NYSTATIN SUSP 5 ML CUP PO ×4 (08:41→20:01)
[2017-08-03 10:16] LABS: ANION GAP 16 (8-16); BLOOD UREA NITROGEN 66 mg/dl (7-20); CALCIUM 8.8 mg/dl (8.4-10.2); CARBON DIOXIDE 31 mmol/L (21-31); CHLORIDE 93 mmol/L (97-110); CREATININE 1.34 mg/dl (0.61-1.24); GLUCOSE 138 mg/dl (70-220); POTASSIUM 3.7 mmol/L (3.5-5.1); SODIUM 136 mmol/L (135-144)
[2017-08-03] MEDS: CEPASTAT LOZENGE MT ×3 (17:11→23:12)
[2017-08-03] MEDS: ACETAMINOPHEN 325 MG TAB PO (20:01)
[2017-08-03] MEDS: MONTELUKAST 10 MG TAB PO (20:04)
[2017-08-03] MEDS: GUAIFENESIN/DM 5ML CUP PO (20:07)
[2017-08-04] MEDS: LEVALBUTEROL (NEB) 0.63 MG/3 ML AMP HHN ×5 (00:50→16:49)
[2017-08-04] MEDS: GUAIFENESIN/DM 5ML CUP PO ×3 (01:17→17:34)
[2017-08-04] MEDS: CEPASTAT LOZENGE MT ×3 (03:41→17:34)
[2017-08-04] MEDS: ACETAMINOPHEN 325 MG TAB PO (03:41)
[2017-08-04] MEDS: PANTOPRAZOLE (EC) 40 MG TAB PO (06:26)
[2017-08-04] MEDS: LEVOTHYROXINE 50 MCG TAB PO (06:26)
[2017-08-04 08:37] LABS: ADD MAN DIFF? NO
[2017-08-04 08:40] LABS: WHITE BLOOD COUNT 13.6 10^3/ul (4.8-10.8)
[2017-08-04 08:40] LABS: BASOPHILS % 0.1 % (0.0-2.0); EOSINOPHILS # 0.7 10^3/ul (0.0-0.5); EOSINOPHILS % 5.5 % (0.0-7.0); HEMATOCRIT 33.5 % (42.0-52.0); LYMPHOCYTES # 1.1 10^3/ul (0.8-2.9); LYMPHOCYTES % 8.3 % (15.0-51.0); MEAN CORPUSCULAR HEMOGLOBIN 30.6 pg (29.0-33.0); MEAN CORPUSCULAR HGB CONC 32.8 g/dl (32.0-37.0); MEAN CORPUSCULAR VOLUME 93.1 fl (82.0-101.0); MEAN PLATELET VOLUME 10.8 fl (7.4-10.4); MONOCYTE # 1.1 10^3/ul (0.3-0.9); MONOCYTES % 7.7 % (0.0-11.0); NEUTROPHIL # 10.5 10^3/ul (1.6-7.5); NEUTROPHILS % 77.4 % (39.0-77.0); PLATELET COUNT 162 10^3/UL (140-415); RED CELL DISTRIBUTION WIDTH 13.2 % (11.5-14.5)
[2017-08-04 08:55] LABS: ANION GAP 17 (8-16); BLOOD UREA NITROGEN 61 mg/dl (7-20); CALCIUM 8.8 mg/dl (8.4-10.2); CARBON DIOXIDE 31 mmol/L (21-31); CHLORIDE 90 mmol/L (97-110); CREATININE 1.27 mg/dl (0.61-1.24); GLUCOSE 155 mg/dl (70-220); POTASSIUM 4.1 mmol/L (3.5-5.1); SODIUM 134 mmol/L (135-144)
[2017-08-04] MEDS: VITAMIN B COMPLEX/VIT C CAP PO (09:32)
[2017-08-04] MEDS: LORATADINE 10 MG TAB PO (09:32)
[2017-08-04] MEDS: SODIUM CHLORIDE 1 GM TAB PO (09:32)
[2017-08-04] MEDS: ASCORBIC ACID 500 MG TAB PO (09:32)
[2017-08-04] MEDS: APIXABAN 5 MG TABLET PO (09:32)
[2017-08-04] MEDS: METOPROLOL (XL) 50 MG TAB PO (09:32)
[2017-08-04] MEDS: predniSONE 10 MG TAB NGT (09:32)
[2017-08-04] MEDS: NYSTATIN SUSP 5 ML CUP PO ×3 (09:32→17:32)
== END 2017-08-04 19:32 | disposition home or self-care (01) | DRG 190 ==
LOC: E/R 00:47 → MS4 06:06
DX: J44.1 Chronic obstructive pulmonary disease with (acute) exacerbation (principal); I50.23 Acute on chronic systolic (congestive) heart failure; N17.9 Acute kidney failure, unspecified; E87.1 Hypo-osmolality and hyponatremia; I13.0 Hypertensive heart and chronic kidney disease with heart failure and stage 1 through stage 4 chronic kidney disease, or unspecified chronic kidney disease; L97.929 Non-pressure chronic ulcer of unspecified part of left lower leg with unspecified severity; L97.919 Non-pressure chronic ulcer of unspecified part of right lower leg with unspecified severity; J44.0 Chronic obstructive pulmonary disease with (acute) lower respiratory infection; D64.9 Anemia, unspecified; E03.9 Hypothyroidism, unspecified; E83.42 Hypomagnesemia; E87.5 Hyperkalemia; I48.0 Paroxysmal atrial fibrillation; J20.9 Acute bronchitis, unspecified; N18.9 Chronic kidney disease, unspecified; Z87.891 Personal history of nicotine dependence
CPT/HCPCS: 36415; 71045; 71250; 76775; 80048; 80053; 80061; 81001; 81003; 82962; 83036; 83605; 83735; 83880; 84443; 84484; 85025; 85610; 85730; 87040; 87070; 87086; 93005; 93306; 93922; 93970; 94640; 94644; 94664; 96374; 96375; 99291-25; G0378

== ENCOUNTER 2017-11-02 16:20 | Inpatient (IN) | payer OTHER, MEDICAID ==
[2017-11-02] MEDS: ASPIRIN 81 MG TAB PO (16:36)
[2017-11-02] MEDS: SOD CHLORIDE 0.9% 500 ML IV (16:37)
[2017-11-02] MEDS: DILTIAZEM 25 MG INJ IV (16:37)
[2017-11-02 16:42] LABS: ADD MAN DIFF? NO
[2017-11-02 16:46] LABS: BASOPHILS % 0.2 % (0.0-2.0); EOSINOPHILS % 0.4 % (0.0-7.0); HEMOGLOBIN 10.7 g/dl (14.0-18.0); LYMPHOCYTES # 0.8 10^3/ul (0.8-2.9); LYMPHOCYTES % 8.9 % (15.0-51.0); MEAN CORPUSCULAR HEMOGLOBIN 30.5 pg (29.0-33.0); MEAN CORPUSCULAR HGB CONC 34.5 g/dl (32.0-37.0); MEAN CORPUSCULAR VOLUME 88.3 fl (82.0-101.0); MEAN PLATELET VOLUME 10.6 fl (7.4-10.4); MONOCYTE # 0.7 10^3/ul (0.3-0.9); MONOCYTES % 7.5 % (0.0-11.0); NEUTROPHIL # 7.6 10^3/ul (1.6-7.5); NEUTROPHILS % 82.5 % (39.0-77.0); PLATELET COUNT 148 10^3/UL (140-415); RED BLOOD COUNT 3.51 10^6/ul (4.70-6.10); RED CELL DISTRIBUTION WIDTH 14.1 % (11.5-14.5)
[2017-11-02 16:46] LABS: WHITE BLOOD COUNT 9.2 10^3/ul (4.8-10.8)
[2017-11-02 17:03] LABS: ANION GAP 21 (8-16); BLOOD UREA NITROGEN 37 mg/dl (7-20); CALCIUM 9.1 mg/dl (8.4-10.2); CARBON DIOXIDE 18 mmol/L (21-31); CHLORIDE 89 mmol/L (97-110); CREATININE 2.05 mg/dl (0.61-1.24); GLUCOSE 129 mg/dl (70-220); SODIUM 121 mmol/L (135-144)
[2017-11-02 17:08] LABS: POTASSIUM 6.6 mmol/L (3.5-5.1)
[2017-11-02 17:13] LABS: B-TYPE NATRIURETIC PEPTIDE 20400 PG/ML (0-450)
[2017-11-02 17:17] LABS: TROPONIN-I 0.023 ng/ml (0.000-0.120)
[2017-11-02] MEDS ORDERED: DEXTROSE 50% 50 ML SYRINGE IV (18:00)
[2017-11-02] MEDS: CALCIUM GLUCONATE 10% 1 GM in DEXTROSE 5% 100 ML IVPB (18:20)
[2017-11-02] MEDS: FUROSEMIDE 40 MG INJ IV (19:08)
[2017-11-02] MEDS: INSULIN REGULAR, HUMAN 100 UNIT/1 ML 3ML VIAL IVP (19:09)
[2017-11-02] MEDS: IPRATROPIUM (NEB) 0.5 MG/2.5 ML AMP HHN (19:14)
[2017-11-02] MEDS: LEVALBUTEROL (NEB) 1.25 MG/0.5 ML AMP HHN (19:14)
[2017-11-02] MEDS: DILTIAZEM-D5W 125MG/125ML DRIP 125 ML IV (20:22)
[2017-11-02] MEDS ORDERED: LEVALBUTEROL (NEB) 0.63 MG/3 ML AMP HHN (22:00)
[2017-11-02 23:08] LABS: CREATINE KINASE 267 IU/L (23-200)
[2017-11-02 23:22] LABS: CK INDEX 3.7; CK-MB 9.91 ng/ml (0.0-2.4); TROPONIN-I 0.031 ng/ml (0.000-0.120)
[2017-11-03] MEDS: PANTOPRAZOLE (EC) 40 MG TAB PO (06:02)
[2017-11-03 07:43] LABS: CREATINE KINASE 315 IU/L (23-200)
[2017-11-03 07:50] LABS: CK INDEX 4.2
[2017-11-03 07:55] LABS: ANION GAP 20 (8-16); BLOOD UREA NITROGEN 43 mg/dl (7-20); CALCIUM 9.4 mg/dl (8.4-10.2); CARBON DIOXIDE 22 mmol/L (21-31); CHLORIDE 90 mmol/L (97-110); CREATININE 1.92 mg/dl (0.61-1.24); GLUCOSE 95 mg/dl (70-220); MAGNESIUM 1.4 mg/dl (1.7-2.5); SODIUM 126 mmol/L (135-144)
[2017-11-03 07:56] LABS: TROPONIN-I 0.042 ng/ml (0.000-0.120)
[2017-11-03 08:00] LABS: POTASSIUM 6.3 mmol/L (3.5-5.1)
[2017-11-03] MEDS: NA POLYST SULFON 15 GM/60 ML BTL PO ×3 (09:04→20:47)
[2017-11-03] MEDS: VITAMIN B COMPLEX/VIT C CAP PO (09:04)
[2017-11-03] MEDS: LEVOTHYROXINE 50 MCG TAB PO (09:05)
[2017-11-03] MEDS: METOPROLOL 25 MG TAB PO (09:05)
[2017-11-03] MEDS: ASCORBIC ACID 500 MG TAB PO (09:05)
[2017-11-03] MEDS: MAGNESIUM SULFATE 2 GM/50 ML 50 ML IVPB ×2 (09:07→15:20)
[2017-11-03] MEDS: ASPIRIN 325 MG TAB PO (09:10)
[2017-11-03] MEDS: LEVALBUTEROL (NEB) 0.63 MG/3 ML AMP HHN ×2 (13:20→20:56)
[2017-11-03] MEDS: FUROSEMIDE 20 MG INJ IV ×2 (15:20→21:00)
[2017-11-03] MEDS ORDERED: MAGNESIUM SULFATE 3 GM in DEXTROSE 5% 100 ML IVPB (15:30)
[2017-11-03] MEDS: ENOXAPARIN 100 MG/ML SYG SC (15:31)
[2017-11-03 17:33] LABS: ANION GAP 17 (8-16); BLOOD UREA NITROGEN 42 mg/dl (7-20); CALCIUM 9.4 mg/dl (8.4-10.2); CARBON DIOXIDE 26 mmol/L (21-31); CHLORIDE 91 mmol/L (97-110); CREATININE 1.88 mg/dl (0.61-1.24); GLUCOSE 132 mg/dl (70-220); SODIUM 128 mmol/L (135-144)
[2017-11-03] MEDS: CEFTRIAXONE 1 GM/50 ML (PMX) 50 ML IVPB (17:47)
[2017-11-03] MEDS: METHYLPREDNISOLONE 40 MG INJ IV (17:47)
[2017-11-03] MEDS ORDERED: LEVALBUTEROL (NEB) 0.63 MG/3 ML AMP HHN (20:00)
[2017-11-03] MEDS: MONTELUKAST 10 MG TAB PO (20:47)
[2017-11-03] MEDS: METOPROLOL (XL) 25 MG TAB PO (20:47)
[2017-11-04] MEDS: LEVALBUTEROL (NEB) 0.63 MG/3 ML AMP HHN ×4 (01:35→19:46)
[2017-11-04] MEDS: PANTOPRAZOLE (EC) 40 MG TAB PO (06:14)
[2017-11-04] MEDS: FUROSEMIDE 20 MG INJ IV ×2 (06:14→17:04)
[2017-11-04] MEDS: LEVOTHYROXINE 50 MCG TAB PO (06:14)
[2017-11-04 08:12] LABS: ADD MAN DIFF? NO
[2017-11-04 08:19] LABS: WHITE BLOOD COUNT 6.1 10^3/ul (4.8-10.8)
[2017-11-04 08:19] LABS: ABNORMAL IP MESSAGE 1; HEMATOCRIT 30.1 % (42.0-52.0); HEMOGLOBIN 10.3 g/dl (14.0-18.0); LYMPHOCYTES # 0.5 10^3/ul (0.8-2.9); LYMPHOCYTES % 8.8 % (15.0-51.0); MEAN CORPUSCULAR HEMOGLOBIN 30.3 pg (29.0-33.0); MEAN CORPUSCULAR HGB CONC 34.2 g/dl (32.0-37.0); MEAN CORPUSCULAR VOLUME 88.5 fl (82.0-101.0); MEAN PLATELET VOLUME 10.4 fl (7.4-10.4); MONOCYTE # 0.2 10^3/ul (0.3-0.9); MONOCYTES % 3.6 % (0.0-11.0); NEUTROPHIL # 5.3 10^3/ul (1.6-7.5); NEUTROPHILS % 87.1 % (39.0-77.0); PLATELET COUNT 151 10^3/UL (140-415); POSITIVE DIFF @See below; RED CELL DISTRIBUTION WIDTH 14.1 % (11.5-14.5)
[2017-11-04 08:39] LABS: CREATINE KINASE 187 IU/L (23-200)
[2017-11-04 08:43] LABS: ANION GAP 17 (8-16); BLOOD UREA NITROGEN 44 mg/dl (7-20); CARBON DIOXIDE 28 mmol/L (21-31); CHLORIDE 89 mmol/L (97-110); CREATININE 1.75 mg/dl (0.61-1.24); GLUCOSE 149 mg/dl (70-220); MAGNESIUM 1.9 mg/dl (1.7-2.5); POTASSIUM 4.2 mmol/L (3.5-5.1); SODIUM 130 mmol/L (135-144)
[2017-11-04 08:52] LABS: TROPONIN-I 0.019 ng/ml (0.000-0.120)
[2017-11-04 08:59] LABS: FREE T4 (FREE THYROXINE) 1.63 ng/dl (0.85-1.93)
[2017-11-04] MEDS: COLLAGENASE 5 GM (UD JAR) TOP (09:00)
[2017-11-04] MEDS: VITAMIN B COMPLEX/VIT C CAP PO (09:05)
[2017-11-04] MEDS: METOPROLOL (XL) 25 MG TAB PO ×2 (09:05→20:12)
[2017-11-04] MEDS: GUAIFENESIN/CODEINE 5ML CUP PO ×2 (09:05→20:14)
[2017-11-04] MEDS: METHYLPREDNISOLONE 40 MG INJ IV (09:05)
[2017-11-04] MEDS: ASCORBIC ACID 500 MG TAB PO (09:05)
[2017-11-04 10:23] LABS: TRIIODOTHYRONINE 1.02 ng/ml (0.97-1.69)
[2017-11-04] MEDS: ENOXAPARIN 100 MG/ML SYG SC (14:01)
[2017-11-04] MEDS: CEFTRIAXONE 1 GM/50 ML (PMX) 50 ML IVPB (17:04)
[2017-11-04] MEDS: MONTELUKAST 10 MG TAB PO (20:12)
[2017-11-05] MEDS: LEVALBUTEROL (NEB) 0.63 MG/3 ML AMP HHN ×4 (01:19→20:10)
[2017-11-05] MEDS: PANTOPRAZOLE (EC) 40 MG TAB PO (06:10)
[2017-11-05] MEDS: FUROSEMIDE 20 MG INJ IV ×2 (06:10→17:03)
[2017-11-05] MEDS: LEVOTHYROXINE 50 MCG TAB PO (06:10)
[2017-11-05] MEDS: METOPROLOL (XL) 25 MG TAB PO ×2 (09:10→21:28)
[2017-11-05] MEDS: VITAMIN B COMPLEX/VIT C CAP PO (09:10)
[2017-11-05] MEDS: ASCORBIC ACID 500 MG TAB PO (09:10)
[2017-11-05] MEDS: COLLAGENASE 5 GM (UD JAR) TOP (09:10)
[2017-11-05] MEDS: METHYLPREDNISOLONE 40 MG INJ IV (09:10)
[2017-11-05] MEDS: GUAIFENESIN/CODEINE 5ML CUP PO ×2 (09:10→21:55)
[2017-11-05] MEDS: ENOXAPARIN 100 MG/ML SYG SC (14:17)
[2017-11-05 16:06] LABS: ADD MAN DIFF? NO
[2017-11-05 16:07] LABS: ABNORMAL IP MESSAGE 1; BASOPHILS % 0.1 % (0.0-2.0); HEMATOCRIT 32.6 % (42.0-52.0); LYMPHOCYTES # 0.4 10^3/ul (0.8-2.9); LYMPHOCYTES % 4.1 % (15.0-51.0); MEAN CORPUSCULAR HEMOGLOBIN 30.2 pg (29.0-33.0); MEAN CORPUSCULAR HGB CONC 33.7 g/dl (32.0-37.0); MEAN CORPUSCULAR VOLUME 89.6 fl (82.0-101.0); MEAN PLATELET VOLUME 10.4 fl (7.4-10.4); MONOCYTE # 0.5 10^3/ul (0.3-0.9); MONOCYTES % 4.7 % (0.0-11.0); NEUTROPHIL # 9.2 10^3/ul (1.6-7.5); NEUTROPHILS % 90.5 % (39.0-77.0); PLATELET COUNT 205 10^3/UL (140-415); POSITIVE DIFF @See below; RED BLOOD COUNT 3.64 10^6/ul (4.70-6.10); RED CELL DISTRIBUTION WIDTH 14.2 % (11.5-14.5)
[2017-11-05 16:07] LABS: WHITE BLOOD COUNT 10.2 10^3/ul (4.8-10.8)
[2017-11-05 16:30] LABS: ANION GAP 21 (8-16); BLOOD UREA NITROGEN 58 mg/dl (7-20); CALCIUM 8.7 mg/dl (8.4-10.2); CARBON DIOXIDE 28 mmol/L (21-31); CHLORIDE 86 mmol/L (97-110); CREATININE 1.83 mg/dl (0.61-1.24); GLUCOSE 143 mg/dl (70-220); POTASSIUM 4.7 mmol/L (3.5-5.1); SODIUM 130 mmol/L (135-144)
[2017-11-05] MEDS: CEFTRIAXONE 1 GM/50 ML (PMX) 50 ML IVPB (17:03)
[2017-11-05] MEDS: GABAPENTIN 100 MG CAP PO ×2 (18:31→21:55)
[2017-11-05] MEDS: MONTELUKAST 10 MG TAB PO (21:29)
[2017-11-06] MEDS: LEVALBUTEROL (NEB) 0.63 MG/3 ML AMP HHN ×5 (01:43→19:45)
[2017-11-06] MEDS: PANTOPRAZOLE (EC) 40 MG TAB PO (05:26)
[2017-11-06] MEDS: FUROSEMIDE 20 MG INJ IV (05:26)
[2017-11-06] MEDS: LEVOTHYROXINE 50 MCG TAB PO (05:26)
[2017-11-06 06:13] LABS: ADD MAN DIFF? NO
[2017-11-06 06:23] LABS: WHITE BLOOD COUNT 10.2 10^3/ul (4.8-10.8)
[2017-11-06 06:23] LABS: BASOPHILS % 0.1 % (0.0-2.0); HEMATOCRIT 31.9 % (42.0-52.0); HEMOGLOBIN 10.8 g/dl (14.0-18.0); LYMPHOCYTES % 10.1 % (15.0-51.0); MEAN CORPUSCULAR HEMOGLOBIN 30.1 pg (29.0-33.0); MEAN CORPUSCULAR HGB CONC 33.9 g/dl (32.0-37.0); MEAN CORPUSCULAR VOLUME 88.9 fl (82.0-101.0); MONOCYTE # 0.9 10^3/ul (0.3-0.9); MONOCYTES % 8.9 % (0.0-11.0); NEUTROPHIL # 8.2 10^3/ul (1.6-7.5); NEUTROPHILS % 79.8 % (39.0-77.0); PLATELET COUNT 180 10^3/UL (140-415); RED BLOOD COUNT 3.59 10^6/ul (4.70-6.10)
[2017-11-06 06:51] LABS: ANION GAP 16 (8-16); BLOOD UREA NITROGEN 62 mg/dl (7-20); CALCIUM 8.3 mg/dl (8.4-10.2); CARBON DIOXIDE 31 mmol/L (21-31); CHLORIDE 89 mmol/L (97-110); CREATININE 1.75 mg/dl (0.61-1.24); GLUCOSE 115 mg/dl (70-220); POTASSIUM 3.8 mmol/L (3.5-5.1); SODIUM 132 mmol/L (135-144)
[2017-11-06] MEDS: COLLAGENASE 5 GM (UD JAR) TOP (09:09)
[2017-11-06] MEDS: METHYLPREDNISOLONE 40 MG INJ IV (09:09)
[2017-11-06] MEDS: VITAMIN B COMPLEX/VIT C CAP PO (09:10)
[2017-11-06] MEDS: ASCORBIC ACID 500 MG TAB PO (09:10)
[2017-11-06] MEDS: GABAPENTIN 100 MG CAP PO ×3 (09:10→19:58)
[2017-11-06] MEDS: METOPROLOL (XL) 25 MG TAB PO ×2 (09:11→20:00)
[2017-11-06] MEDS: ACETAMINOPHEN 325 MG TAB PO (10:48)
[2017-11-06] MEDS: ENOXAPARIN 100 MG/ML SYG SC (13:17)
[2017-11-06] MEDS: CEFTRIAXONE 1 GM/50 ML (PMX) 50 ML IVPB (16:06)
[2017-11-06] MEDS: MONTELUKAST 10 MG TAB PO (19:58)
[2017-11-06] MEDS: GUAIFENESIN/CODEINE 5ML CUP PO (20:03)
[2017-11-06] MEDS: traMADol 50 MG TAB PO (20:03)
[2017-11-07] MEDS: LEVALBUTEROL (NEB) 0.63 MG/3 ML AMP HHN ×4 (02:00→20:00)
[2017-11-07 06:08] LABS: ADD MAN DIFF? NO
[2017-11-07 06:14] LABS: WHITE BLOOD COUNT 9.8 10^3/ul (4.8-10.8)
[2017-11-07 06:14] LABS: BASOPHILS % 0.1 % (0.0-2.0); EOSINOPHILS # 0.1 10^3/ul (0.0-0.5); EOSINOPHILS % 0.5 % (0.0-7.0); HEMATOCRIT 31.5 % (42.0-52.0); HEMOGLOBIN 10.5 g/dl (14.0-18.0); LYMPHOCYTES # 1.2 10^3/ul (0.8-2.9); LYMPHOCYTES % 12.4 % (15.0-51.0); MEAN CORPUSCULAR HEMOGLOBIN 29.9 pg (29.0-33.0); MEAN CORPUSCULAR HGB CONC 33.3 g/dl (32.0-37.0); MEAN CORPUSCULAR VOLUME 89.7 fl (82.0-101.0); MEAN PLATELET VOLUME 10.5 fl (7.4-10.4); MONOCYTE # 0.9 10^3/ul (0.3-0.9); NEUTROPHIL # 7.6 10^3/ul (1.6-7.5); NEUTROPHILS % 77.6 % (39.0-77.0); PLATELET COUNT 170 10^3/UL (140-415); RED BLOOD COUNT 3.51 10^6/ul (4.70-6.10)
[2017-11-07] MEDS: PANTOPRAZOLE (EC) 40 MG TAB PO (06:26)
[2017-11-07] MEDS: LEVOTHYROXINE 50 MCG TAB PO (06:26)
[2017-11-07 06:36] LABS: ANION GAP 15 (8-16)
[2017-11-07 07:03] LABS: BLOOD UREA NITROGEN 68 mg/dl (7-20); CALCIUM 8.3 mg/dl (8.4-10.2); CARBON DIOXIDE 32 mmol/L (21-31); CHLORIDE 89 mmol/L (97-110); CREATININE 1.74 mg/dl (0.61-1.24); GLUCOSE 104 mg/dl (70-220); POTASSIUM 4.5 mmol/L (3.5-5.1); SODIUM 131 mmol/L (135-144)
[2017-11-07] MEDS: GABAPENTIN 100 MG CAP PO ×3 (09:03→21:00)
[2017-11-07] MEDS: VITAMIN B COMPLEX/VIT C CAP PO (09:03)
[2017-11-07] MEDS: METHYLPREDNISOLONE 40 MG INJ IV (09:03)
[2017-11-07] MEDS: FUROSEMIDE 20 MG INJ IV (09:03)
[2017-11-07] MEDS: COLLAGENASE 5 GM (UD JAR) TOP (09:03)
[2017-11-07] MEDS: METOPROLOL (XL) 25 MG TAB PO ×2 (09:03→21:01)
[2017-11-07] MEDS: ASCORBIC ACID 500 MG TAB PO (09:03)
[2017-11-07] MEDS: ENOXAPARIN 100 MG/ML SYG SC (14:46)
[2017-11-07] MEDS: CEFTRIAXONE 1 GM/50 ML (PMX) 50 ML IVPB (17:10)
[2017-11-07] MEDS: MONTELUKAST 10 MG TAB PO (21:00)
[2017-11-07] MEDS: traMADol 50 MG TAB PO (21:01)
[2017-11-08] MEDS: LEVALBUTEROL (NEB) 0.63 MG/3 ML AMP HHN ×4 (01:40→19:40)
[2017-11-08] MEDS: PANTOPRAZOLE (EC) 40 MG TAB PO (05:32)
[2017-11-08 06:16] LABS: ADD MAN DIFF? NO
[2017-11-08 06:29] LABS: WHITE BLOOD COUNT 9.9 10^3/ul (4.8-10.8)
[2017-11-08 06:29] LABS: BASOPHILS % 0.1 % (0.0-2.0); EOSINOPHILS # 0.3 10^3/ul (0.0-0.5); EOSINOPHILS % 3.2 % (0.0-7.0); HEMATOCRIT 32.9 % (42.0-52.0); LYMPHOCYTES # 1.2 10^3/ul (0.8-2.9); MEAN CORPUSCULAR HEMOGLOBIN 30.3 pg (29.0-33.0); MEAN CORPUSCULAR HGB CONC 33.4 g/dl (32.0-37.0); MEAN CORPUSCULAR VOLUME 90.6 fl (82.0-101.0); MEAN PLATELET VOLUME 10.6 fl (7.4-10.4); MONOCYTE # 0.8 10^3/ul (0.3-0.9); MONOCYTES % 8.1 % (0.0-11.0); NEUTROPHIL # 7.6 10^3/ul (1.6-7.5); NEUTROPHILS % 76.3 % (39.0-77.0); PLATELET COUNT 188 10^3/UL (140-415); RED BLOOD COUNT 3.63 10^6/ul (4.70-6.10); RED CELL DISTRIBUTION WIDTH 13.8 % (11.5-14.5)
[2017-11-08] MEDS: LEVOTHYROXINE 50 MCG TAB PO (07:31)
[2017-11-08 07:43] LABS: ANION GAP 15 (8-16); BLOOD UREA NITROGEN 65 mg/dl (7-20); CALCIUM 8.5 mg/dl (8.4-10.2); CARBON DIOXIDE 27 mmol/L (21-31); CHLORIDE 92 mmol/L (97-110); CREATININE 1.42 mg/dl (0.61-1.24); GLUCOSE 152 mg/dl (70-220); POTASSIUM 4.6 mmol/L (3.5-5.1); SODIUM 129 mmol/L (135-144)
[2017-11-08] MEDS: COLLAGENASE 5 GM (UD JAR) TOP (09:14)
[2017-11-08] MEDS: GABAPENTIN 100 MG CAP PO ×3 (09:15→20:45)
[2017-11-08] MEDS: VITAMIN B COMPLEX/VIT C CAP PO (09:15)
[2017-11-08] MEDS: METOPROLOL (XL) 25 MG TAB PO ×2 (09:15→20:45)
[2017-11-08] MEDS: ASCORBIC ACID 500 MG TAB PO (09:15)
[2017-11-08] MEDS: FUROSEMIDE 20 MG TAB PO (09:15)
[2017-11-08] MEDS: METHYLPREDNISOLONE 40 MG INJ IV (09:15)
[2017-11-08] MEDS: ENOXAPARIN 100 MG/ML SYG SC (13:39)
[2017-11-08] MEDS: CEFEPIME 1GM/50 ML (PMX) 50 ML IVPB (16:10)
[2017-11-08] MEDS: ACETAMINOPHEN 325 MG TAB PO (17:27)
[2017-11-08] MEDS: MONTELUKAST 10 MG TAB PO (20:44)
[2017-11-08] MEDS: DOXYCYCLINE 100 MG TAB PO (20:44)
[2017-11-09] MEDS: CEFEPIME 1GM/50 ML (PMX) 50 ML IVPB ×3 (01:07→21:11)
[2017-11-09] MEDS: LEVALBUTEROL (NEB) 0.63 MG/3 ML AMP HHN ×4 (02:00→20:14)
[2017-11-09] MEDS: PANTOPRAZOLE (EC) 40 MG TAB PO (05:53)
[2017-11-09] MEDS: LEVOTHYROXINE 50 MCG TAB PO (06:12)
[2017-11-09 06:18] LABS: ADD MAN DIFF? NO
[2017-11-09 06:33] LABS: WHITE BLOOD COUNT 8.8 10^3/ul (4.8-10.8)
[2017-11-09 06:33] LABS: BASOPHILS % 0.1 % (0.0-2.0); EOSINOPHILS # 0.3 10^3/ul (0.0-0.5); EOSINOPHILS % 2.9 % (0.0-7.0); HEMATOCRIT 34.3 % (42.0-52.0); HEMOGLOBIN 11.2 g/dl (14.0-18.0); LYMPHOCYTES # 1.1 10^3/ul (0.8-2.9); LYMPHOCYTES % 12.9 % (15.0-51.0); MEAN CORPUSCULAR HEMOGLOBIN 29.6 pg (29.0-33.0); MEAN CORPUSCULAR HGB CONC 32.7 g/dl (32.0-37.0); MEAN CORPUSCULAR VOLUME 90.5 fl (82.0-101.0); MEAN PLATELET VOLUME 10.5 fl (7.4-10.4); MONOCYTE # 0.8 10^3/ul (0.3-0.9); MONOCYTES % 8.6 % (0.0-11.0); NEUTROPHIL # 6.6 10^3/ul (1.6-7.5); NEUTROPHILS % 74.8 % (39.0-77.0); PLATELET COUNT 173 10^3/UL (140-415); RED BLOOD COUNT 3.79 10^6/ul (4.70-6.10); RED CELL DISTRIBUTION WIDTH 13.7 % (11.5-14.5)
[2017-11-09 06:46] LABS: INR 1.03; PROTIME 13.6 Sec (11.9-14.9); PT RATIO 1.1
[2017-11-09 06:56] LABS: ALANINE AMINOTRANSFERASE 128 IU/L (13-69); ALKALINE PHOSPHATASE 55 IU/L (42-121); ANION GAP 15 (8-16); ASPARTATE AMINO TRANSFERASE 75 IU/L (15-46); BILIRUBIN,INDIRECT 0.4 mg/dl (0-1.1); BILIRUBIN,TOTAL 0.4 mg/dl (0.2-1.3); BLOOD UREA NITROGEN 65 mg/dl (7-20); CALCIUM 9.3 mg/dl (8.4-10.2); CARBON DIOXIDE 32 mmol/L (21-31); CHLORIDE 89 mmol/L (97-110); CREATININE 1.49 mg/dl (0.61-1.24); GLUCOSE 124 mg/dl (70-220); SODIUM 131 mmol/L (135-144); TOTAL PROTEIN 6.3 g/dl (6.1-8.1)
[2017-11-09 07:05] LABS: B-TYPE NATRIURETIC PEPTIDE 3770 PG/ML (0-450)
[2017-11-09 07:11] LABS: MAGNESIUM 1.6 mg/dl (1.7-2.5)
[2017-11-09 07:11] LABS: PHOSPHORUS 3.1 mg/dl (2.5-4.9)
[2017-11-09] MEDS: VITAMIN B COMPLEX/VIT C CAP PO (09:41)
[2017-11-09] MEDS: METHYLPREDNISOLONE 40 MG INJ IV (09:41)
[2017-11-09] MEDS: FUROSEMIDE 20 MG TAB PO (09:42)
[2017-11-09] MEDS: DOXYCYCLINE 100 MG TAB PO ×2 (09:42→21:09)
[2017-11-09] MEDS: COLLAGENASE 5 GM (UD JAR) TOP (09:42)
[2017-11-09] MEDS: GABAPENTIN 100 MG CAP PO ×3 (09:42→21:09)
[2017-11-09] MEDS: METOPROLOL (XL) 25 MG TAB PO ×2 (09:42→21:09)
[2017-11-09] MEDS: ASCORBIC ACID 500 MG TAB PO (09:42)
[2017-11-09] MEDS: MAGNESIUM SULFATE 2 GM/50 ML 50 ML IVPB (11:20)
[2017-11-09] MEDS: FUROSEMIDE 40 MG INJ IV (14:03)
[2017-11-09] MEDS: ENOXAPARIN 100 MG/ML SYG SC (14:13)
[2017-11-09] MEDS: NYSTATIN SUSP 5 ML CUP PO ×2 (17:11→21:08)
[2017-11-09] MEDS: MONTELUKAST 10 MG TAB PO (21:08)
[2017-11-09] MEDS: MUPIROCIN 2% 22 GM OINT TOP (21:09)
[2017-11-09] MEDS: traMADol 50 MG TAB PO (21:12)
[2017-11-10] MEDS: LEVALBUTEROL (NEB) 0.63 MG/3 ML AMP HHN ×4 (01:38→20:47)
[2017-11-10] MEDS: PANTOPRAZOLE (EC) 40 MG TAB PO (06:18)
[2017-11-10] MEDS: LEVOTHYROXINE 50 MCG TAB PO (06:18)
[2017-11-10] MEDS: ACETAMINOPHEN 325 MG TAB PO (06:50)
[2017-11-10] MEDS: METOPROLOL (XL) 25 MG TAB PO ×2 (09:00→21:11)
[2017-11-10] MEDS: DOXYCYCLINE 100 MG TAB PO ×2 (09:51→21:10)
[2017-11-10] MEDS: VITAMIN B COMPLEX/VIT C CAP PO (09:51)
[2017-11-10] MEDS: NYSTATIN SUSP 5 ML CUP PO ×4 (09:51→21:12)
[2017-11-10] MEDS: ASCORBIC ACID 500 MG TAB PO (09:51)
[2017-11-10] MEDS: COLLAGENASE 5 GM (UD JAR) TOP (09:52)
[2017-11-10] MEDS: METHYLPREDNISOLONE 40 MG INJ IV (09:52)
[2017-11-10] MEDS: GABAPENTIN 100 MG CAP PO ×3 (09:52→21:11)
[2017-11-10] MEDS: FUROSEMIDE 20 MG TAB PO ×2 (09:52→21:12)
[2017-11-10] MEDS: MUPIROCIN 2% 22 GM OINT TOP ×2 (09:52→21:10)
[2017-11-10] MEDS: CEFEPIME 1GM/50 ML (PMX) 50 ML IVPB ×2 (09:52→21:09)
[2017-11-10] MEDS: traMADol 50 MG TAB PO ×2 (10:17→21:12)
[2017-11-10] MEDS: FUROSEMIDE 20 MG INJ IV (15:16)
[2017-11-10] MEDS: ENOXAPARIN 100 MG/ML SYG SC (15:24)
[2017-11-10] MEDS: GUAIFENESIN/CODEINE 5ML CUP PO ×2 (18:34→23:41)
[2017-11-10] MEDS: MONTELUKAST 10 MG TAB PO (21:11)
[2017-11-11] MEDS: ACETAMINOPHEN 325 MG TAB PO ×2 (02:31→09:48)
[2017-11-11] MEDS: LEVALBUTEROL (NEB) 0.63 MG/3 ML AMP HHN ×4 (03:33→21:50)
[2017-11-11 06:41] LABS: ADD MAN DIFF? NO
[2017-11-11] MEDS: PANTOPRAZOLE (EC) 40 MG TAB PO (06:45)
[2017-11-11] MEDS: LEVOTHYROXINE 50 MCG TAB PO (06:45)
[2017-11-11 06:46] LABS: BASOPHILS % 0.1 % (0.0-2.0); EOSINOPHILS # 0.1 10^3/ul (0.0-0.5); EOSINOPHILS % 1.1 % (0.0-7.0); HEMATOCRIT 32.8 % (42.0-52.0); LYMPHOCYTES # 1.4 10^3/ul (0.8-2.9); LYMPHOCYTES % 11.6 % (15.0-51.0); MEAN CORPUSCULAR HEMOGLOBIN 29.6 pg (29.0-33.0); MEAN CORPUSCULAR HGB CONC 33.5 g/dl (32.0-37.0); MEAN CORPUSCULAR VOLUME 88.4 fl (82.0-101.0); MEAN PLATELET VOLUME 10.3 fl (7.4-10.4); MONOCYTE # 1.3 10^3/ul (0.3-0.9); MONOCYTES % 10.3 % (0.0-11.0); NEUTROPHIL # 9.3 10^3/ul (1.6-7.5); NEUTROPHILS % 76.2 % (39.0-77.0); PLATELET COUNT 185 10^3/UL (140-415); RED BLOOD COUNT 3.71 10^6/ul (4.70-6.10); RED CELL DISTRIBUTION WIDTH 13.4 % (11.5-14.5)
[2017-11-11 06:46] LABS: WHITE BLOOD COUNT 12.2 10^3/ul (4.8-10.8)
[2017-11-11 07:03] LABS: INR 1.02; PROTIME 13.5 Sec (11.9-14.9); PT RATIO 1.1
[2017-11-11 07:03] LABS: MAGNESIUM 1.5 mg/dl (1.7-2.5)
[2017-11-11 07:04] LABS: ALANINE AMINOTRANSFERASE 99 IU/L (13-69); ALBUMIN 3.4 g/dl (3.3-4.9); ALBUMIN/GLOBULIN RATIO 1.06; ALKALINE PHOSPHATASE 52 IU/L (42-121); ANION GAP 14 (8-16); ASPARTATE AMINO TRANSFERASE 56 IU/L (15-46); BILIRUBIN,INDIRECT 0.3 mg/dl (0-1.1); BILIRUBIN,TOTAL 0.3 mg/dl (0.2-1.3); BLOOD UREA NITROGEN 79 mg/dl (7-20); CALCIUM 8.8 mg/dl (8.4-10.2); CARBON DIOXIDE 31 mmol/L (21-31); CHLORIDE 86 mmol/L (97-110); CREATININE 1.62 mg/dl (0.61-1.24); GLUCOSE 115 mg/dl (70-220); PARTIAL THROMBOPLASTIN TIME 27.2 Sec (23.0-35.0); POTASSIUM 5.3 mmol/L (3.5-5.1); SODIUM 126 mmol/L (135-144); TOTAL PROTEIN 6.6 g/dl (6.1-8.1)
[2017-11-11] MEDS: ASCORBIC ACID 500 MG TAB PO (09:48)
[2017-11-11] MEDS: GABAPENTIN 100 MG CAP PO ×3 (09:48→20:38)
[2017-11-11] MEDS: FUROSEMIDE 20 MG TAB PO (09:48)
[2017-11-11] MEDS: DOXYCYCLINE 100 MG TAB PO ×2 (09:48→20:38)
[2017-11-11] MEDS: VITAMIN B COMPLEX/VIT C CAP PO (09:48)
[2017-11-11] MEDS: METHYLPREDNISOLONE 40 MG INJ IV (09:48)
[2017-11-11] MEDS: NYSTATIN SUSP 5 ML CUP PO ×4 (09:49→20:37)
[2017-11-11] MEDS: METOPROLOL (XL) 25 MG TAB PO ×2 (09:49→20:38)
[2017-11-11] MEDS: MUPIROCIN 2% 22 GM OINT TOP ×2 (09:49→20:38)
[2017-11-11] MEDS: COLLAGENASE 5 GM (UD JAR) TOP (09:49)
[2017-11-11] MEDS: CEFEPIME 1GM/50 ML (PMX) 50 ML IVPB ×2 (09:50→20:38)
[2017-11-11] MEDS: traMADol 50 MG TAB PO (11:20)
[2017-11-11] MEDS: ALBUMIN HUMAN 25% 100 ML IV (15:30)
[2017-11-11] MEDS: MAGNESIUM SULFATE 1 GM/D5W 100 ML IVPB (16:56)
[2017-11-11] MEDS: LACTULOSE 30ML CUP PO (16:56)
[2017-11-11] MEDS: ENOXAPARIN 100 MG/ML SYG SC (17:57)
[2017-11-11] MEDS: MONTELUKAST 10 MG TAB PO (20:38)
[2017-11-12] MEDS: LEVALBUTEROL (NEB) 0.63 MG/3 ML AMP HHN ×4 (04:08→19:51)
[2017-11-12] MEDS: PANTOPRAZOLE (EC) 40 MG TAB PO (06:01)
[2017-11-12] MEDS: LEVOTHYROXINE 50 MCG TAB PO (06:01)
[2017-11-12 07:01] LABS: ADD MAN DIFF? NO
[2017-11-12 07:05] LABS: BASOPHILS % 0.1 % (0.0-2.0); EOSINOPHILS % 0.2 % (0.0-7.0); HEMATOCRIT 32.5 % (42.0-52.0); LYMPHOCYTES # 0.9 10^3/ul (0.8-2.9); LYMPHOCYTES % 10.3 % (15.0-51.0); MEAN CORPUSCULAR HEMOGLOBIN 30.1 pg (29.0-33.0); MEAN CORPUSCULAR HGB CONC 33.8 g/dl (32.0-37.0); MEAN PLATELET VOLUME 10.5 fl (7.4-10.4); MONOCYTE # 0.6 10^3/ul (0.3-0.9); MONOCYTES % 7.1 % (0.0-11.0); NEUTROPHIL # 7.3 10^3/ul (1.6-7.5); NEUTROPHILS % 81.5 % (39.0-77.0); PLATELET COUNT 175 10^3/UL (140-415); RED BLOOD COUNT 3.65 10^6/ul (4.70-6.10); RED CELL DISTRIBUTION WIDTH 13.2 % (11.5-14.5)
[2017-11-12 07:30] LABS: ANION GAP 16 (8-16); BLOOD UREA NITROGEN 73 mg/dl (7-20); CALCIUM 8.9 mg/dl (8.4-10.2); CARBON DIOXIDE 29 mmol/L (21-31); CHLORIDE 85 mmol/L (97-110); CREATININE 1.45 mg/dl (0.61-1.24); GLUCOSE 176 mg/dl (70-220); POTASSIUM 4.7 mmol/L (3.5-5.1); SODIUM 125 mmol/L (135-144)
[2017-11-12] MEDS: CEFEPIME 1GM/50 ML (PMX) 50 ML IVPB ×2 (08:18→21:07)
[2017-11-12] MEDS: VITAMIN B COMPLEX/VIT C CAP PO (08:18)
[2017-11-12] MEDS: METHYLPREDNISOLONE 40 MG INJ IV (08:18)
[2017-11-12] MEDS: NYSTATIN SUSP 5 ML CUP PO ×4 (08:18→21:11)
[2017-11-12] MEDS: COLLAGENASE 5 GM (UD JAR) TOP (08:18)
[2017-11-12] MEDS: METOPROLOL (XL) 25 MG TAB PO ×2 (08:19→21:12)
[2017-11-12] MEDS: ASCORBIC ACID 500 MG TAB PO (08:19)
[2017-11-12] MEDS: DOXYCYCLINE 100 MG TAB PO ×2 (08:19→21:11)
[2017-11-12] MEDS: FUROSEMIDE 20 MG TAB PO (08:19)
[2017-11-12] MEDS: GABAPENTIN 100 MG CAP PO ×3 (08:19→21:11)
[2017-11-12] MEDS: MUPIROCIN 2% 22 GM OINT TOP ×2 (08:22→21:12)
[2017-11-12] MEDS: ENOXAPARIN 100 MG/ML SYG SC (14:10)
[2017-11-12 14:57] LABS: MAGNESIUM 1.8 mg/dl (1.7-2.5)
[2017-11-12] MEDS: SOD CHLORIDE 0.9% 500 ML IV (15:22)
[2017-11-12] MEDS: MONTELUKAST 10 MG TAB PO (21:11)
[2017-11-13] MEDS: LEVALBUTEROL (NEB) 0.63 MG/3 ML AMP HHN ×4 (01:47→21:09)
[2017-11-13] MEDS: PANTOPRAZOLE (EC) 40 MG TAB PO (06:32)
[2017-11-13] MEDS: LEVOTHYROXINE 50 MCG TAB PO (06:32)
[2017-11-13] MEDS: METHYLPREDNISOLONE 40 MG INJ IV (08:20)
[2017-11-13] MEDS: MUPIROCIN 2% 22 GM OINT TOP ×2 (08:24→21:03)
[2017-11-13] MEDS: COLLAGENASE 5 GM (UD JAR) TOP (08:24)
[2017-11-13] MEDS: DOXYCYCLINE 100 MG TAB PO ×2 (08:25→21:07)
[2017-11-13] MEDS: NYSTATIN SUSP 5 ML CUP PO ×4 (08:25→21:01)
[2017-11-13] MEDS: FUROSEMIDE 20 MG TAB PO (08:26)
[2017-11-13] MEDS: ASCORBIC ACID 500 MG TAB PO (08:26)
[2017-11-13] MEDS: GABAPENTIN 100 MG CAP PO ×3 (08:27→21:01)
[2017-11-13] MEDS: CEFEPIME 1GM/50 ML (PMX) 50 ML IVPB ×2 (08:27→21:00)
[2017-11-13] MEDS: METOPROLOL (XL) 25 MG TAB PO ×2 (08:27→21:01)
[2017-11-13] MEDS: VITAMIN B COMPLEX/VIT C CAP PO (08:28)
[2017-11-13] MEDS: LACTULOSE 30ML CUP PO (13:40)
[2017-11-13] MEDS: SODIUM CHLORIDE 1 GM TAB PO ×2 (13:42→21:01)
[2017-11-13] MEDS: ENOXAPARIN 100 MG/ML SYG SC (13:46)
[2017-11-13] MEDS: MONTELUKAST 10 MG TAB PO (21:01)
[2017-11-13] MEDS: GUAIFENESIN/CODEINE 5ML CUP PO (21:05)
[2017-11-13] MEDS: traMADol 50 MG TAB PO (21:08)
[2017-11-14] MEDS: LEVALBUTEROL (NEB) 0.63 MG/3 ML AMP HHN ×4 (02:22→20:08)
[2017-11-14] MEDS: LEVOTHYROXINE 50 MCG TAB PO (05:39)
[2017-11-14] MEDS: PANTOPRAZOLE (EC) 40 MG TAB PO (05:39)
[2017-11-14] MEDS: ACETAMINOPHEN 325 MG TAB PO (05:41)
[2017-11-14] MEDS: FUROSEMIDE 20 MG TAB PO (09:02)
[2017-11-14] MEDS: ASCORBIC ACID 500 MG TAB PO (09:02)
[2017-11-14] MEDS: METHYLPREDNISOLONE 40 MG INJ IV (09:02)
[2017-11-14] MEDS: DOCUSATE SODIUM 100 MG CAP PO (09:02)
[2017-11-14] MEDS: DOXYCYCLINE 100 MG TAB PO ×2 (09:02→22:20)
[2017-11-14] MEDS: VITAMIN B COMPLEX/VIT C CAP PO (09:02)
[2017-11-14] MEDS: GABAPENTIN 100 MG CAP PO ×3 (09:03→22:19)
[2017-11-14] MEDS: METOPROLOL (XL) 25 MG TAB PO ×2 (09:03→22:21)
[2017-11-14] MEDS: SODIUM CHLORIDE 1 GM TAB PO ×2 (09:03→22:19)
[2017-11-14] MEDS: NYSTATIN SUSP 5 ML CUP PO ×4 (09:03→22:19)
[2017-11-14] MEDS: CEFEPIME 1GM/50 ML (PMX) 50 ML IVPB ×2 (09:04→22:19)
[2017-11-14] MEDS: MUPIROCIN 2% 22 GM OINT TOP ×2 (09:04→22:21)
[2017-11-14] MEDS: COLLAGENASE 5 GM (UD JAR) TOP (09:13)
[2017-11-14 09:42] LABS: ANION GAP 15 (8-16); BLOOD UREA NITROGEN 68 mg/dl (7-20); CALCIUM 9.1 mg/dl (8.4-10.2); CARBON DIOXIDE 28 mmol/L (21-31); CHLORIDE 87 mmol/L (97-110); CREATININE 1.54 mg/dl (0.61-1.24); GLUCOSE 133 mg/dl (70-220); POTASSIUM 4.7 mmol/L (3.5-5.1); SODIUM 125 mmol/L (135-144)
[2017-11-14] MEDS: ENOXAPARIN 100 MG/ML SYG SC (14:55)
[2017-11-14] MEDS: MONTELUKAST 10 MG TAB PO (22:19)
[2017-11-15] MEDS: LEVALBUTEROL (NEB) 0.63 MG/3 ML AMP HHN ×4 (01:24→20:30)
[2017-11-15] MEDS: GUAIFENESIN/CODEINE 5ML CUP PO (01:39)
[2017-11-15 05:57] LABS: ADD MAN DIFF? NO
[2017-11-15 05:59] LABS: BASOPHILS % 0.2 % (0.0-2.0); EOSINOPHILS # 0.1 10^3/ul (0.0-0.5); EOSINOPHILS % 0.4 % (0.0-7.0); HEMATOCRIT 31.2 % (42.0-52.0); HEMOGLOBIN 10.4 g/dl (14.0-18.0); LYMPHOCYTES # 1.3 10^3/ul (0.8-2.9); LYMPHOCYTES % 9.9 % (15.0-51.0); MEAN CORPUSCULAR HEMOGLOBIN 29.5 pg (29.0-33.0); MEAN CORPUSCULAR HGB CONC 33.3 g/dl (32.0-37.0); MEAN CORPUSCULAR VOLUME 88.6 fl (82.0-101.0); MONOCYTE # 1.2 10^3/ul (0.3-0.9); MONOCYTES % 9.1 % (0.0-11.0); NEUTROPHIL # 10.4 10^3/ul (1.6-7.5); NEUTROPHILS % 79.8 % (39.0-77.0); PLATELET COUNT 180 10^3/UL (140-415); RED BLOOD COUNT 3.52 10^6/ul (4.70-6.10); RED CELL DISTRIBUTION WIDTH 13.5 % (11.5-14.5)
[2017-11-15] MEDS: LEVOTHYROXINE 50 MCG TAB PO (06:30)
[2017-11-15] MEDS: PANTOPRAZOLE (EC) 40 MG TAB PO (06:30)
[2017-11-15 06:34] LABS: ANION GAP 13 (8-16); BLOOD UREA NITROGEN 76 mg/dl (7-20); CARBON DIOXIDE 28 mmol/L (21-31); CHLORIDE 89 mmol/L (97-110); CREATININE 1.58 mg/dl (0.61-1.24); GLUCOSE 107 mg/dl (70-220); POTASSIUM 5.3 mmol/L (3.5-5.1); SODIUM 125 mmol/L (135-144)
[2017-11-15] MEDS: NYSTATIN SUSP 5 ML CUP PO ×4 (09:12→20:52)
[2017-11-15] MEDS: DOXYCYCLINE 100 MG TAB PO (09:12)
[2017-11-15] MEDS: ASCORBIC ACID 500 MG TAB PO (09:12)
[2017-11-15] MEDS: SODIUM CHLORIDE 1 GM TAB PO ×2 (09:12→20:52)
[2017-11-15] MEDS: VITAMIN B COMPLEX/VIT C CAP PO (09:12)
[2017-11-15] MEDS: DOCUSATE SODIUM 100 MG CAP PO (09:13)
[2017-11-15] MEDS: GABAPENTIN 100 MG CAP PO ×3 (09:13→20:53)
[2017-11-15] MEDS: METHYLPREDNISOLONE 40 MG INJ IV (09:13)
[2017-11-15] MEDS: METOPROLOL (XL) 25 MG TAB PO ×2 (09:13→20:56)
[2017-11-15] MEDS: CEFEPIME 1GM/50 ML (PMX) 50 ML IVPB (09:14)
[2017-11-15] MEDS: FUROSEMIDE 20 MG TAB PO (09:14)
[2017-11-15] MEDS: MUPIROCIN 2% 22 GM OINT TOP ×2 (09:20→21:02)
[2017-11-15] MEDS: COLLAGENASE 5 GM (UD JAR) TOP (09:20)
[2017-11-15] MEDS: ENOXAPARIN 100 MG/ML SYG SC (14:59)
[2017-11-15] MEDS: MONTELUKAST 10 MG TAB PO (20:53)
[2017-11-15] MEDS: traMADol 50 MG TAB PO (20:56)
[2017-11-16] MEDS: LEVALBUTEROL (NEB) 0.63 MG/3 ML AMP HHN ×4 (01:28→19:17)
[2017-11-16 05:50] LABS: ADD MAN DIFF? NO
[2017-11-16 05:58] LABS: WHITE BLOOD COUNT 15.5 10^3/ul (4.8-10.8)
[2017-11-16 05:58] LABS: BASOPHILS % 0.1 % (0.0-2.0); EOSINOPHILS # 0.1 10^3/ul (0.0-0.5); EOSINOPHILS % 0.5 % (0.0-7.0); HEMATOCRIT 31.5 % (42.0-52.0); HEMOGLOBIN 10.8 g/dl (14.0-18.0); LYMPHOCYTES # 1.4 10^3/ul (0.8-2.9); LYMPHOCYTES % 9.1 % (15.0-51.0); MEAN CORPUSCULAR HEMOGLOBIN 30.3 pg (29.0-33.0); MEAN CORPUSCULAR HGB CONC 34.3 g/dl (32.0-37.0); MEAN CORPUSCULAR VOLUME 88.5 fl (82.0-101.0); MEAN PLATELET VOLUME 10.5 fl (7.4-10.4); MONOCYTE # 1.3 10^3/ul (0.3-0.9); MONOCYTES % 8.6 % (0.0-11.0); NEUTROPHIL # 12.6 10^3/ul (1.6-7.5); NEUTROPHILS % 80.9 % (39.0-77.0); PLATELET COUNT 171 10^3/UL (140-415); RED BLOOD COUNT 3.56 10^6/ul (4.70-6.10); RED CELL DISTRIBUTION WIDTH 13.3 % (11.5-14.5)
[2017-11-16 06:25] LABS: MAGNESIUM 1.6 mg/dl (1.7-2.5)
[2017-11-16 06:25] LABS: PHOSPHORUS 4.4 mg/dl (2.5-4.9)
[2017-11-16] MEDS: PANTOPRAZOLE (EC) 40 MG TAB PO (06:28)
[2017-11-16 06:34] LABS: B-TYPE NATRIURETIC PEPTIDE 2400 PG/ML (0-450)
[2017-11-16] MEDS: LEVOTHYROXINE 50 MCG TAB PO (06:34)
[2017-11-16 06:58] LABS: ALANINE AMINOTRANSFERASE 105 IU/L (13-69); ALBUMIN 2.9 g/dl (3.3-4.9); ALBUMIN/GLOBULIN RATIO 0.93; ALKALINE PHOSPHATASE 53 IU/L (42-121); ANION GAP 13 (8-16); ASPARTATE AMINO TRANSFERASE 59 IU/L (15-46); BILIRUBIN,INDIRECT 0.5 mg/dl (0-1.1); BILIRUBIN,TOTAL 0.5 mg/dl (0.2-1.3); BLOOD UREA NITROGEN 80 mg/dl (7-20); CARBON DIOXIDE 27 mmol/L (21-31); CHLORIDE 90 mmol/L (97-110); GLUCOSE 97 mg/dl (70-220); POTASSIUM 5.1 mmol/L (3.5-5.1); SODIUM 125 mmol/L (135-144)
[2017-11-16] MEDS: METHYLPREDNISOLONE 40 MG INJ IV (08:50)
[2017-11-16] MEDS: ASCORBIC ACID 500 MG TAB PO (08:50)
[2017-11-16] MEDS: DOCUSATE SODIUM 100 MG CAP PO (08:50)
[2017-11-16] MEDS: VITAMIN B COMPLEX/VIT C CAP PO (08:50)
[2017-11-16] MEDS: NYSTATIN SUSP 5 ML CUP PO ×4 (08:50→20:11)
[2017-11-16] MEDS: GABAPENTIN 100 MG CAP PO ×3 (08:50→20:11)
[2017-11-16] MEDS: SODIUM CHLORIDE 1 GM TAB PO ×2 (08:50→20:11)
[2017-11-16] MEDS: MUPIROCIN 2% 22 GM OINT TOP ×2 (08:55→22:56)
[2017-11-16] MEDS: METOPROLOL (XL) 25 MG TAB PO ×2 (08:57→20:12)
[2017-11-16] MEDS: COLLAGENASE 5 GM (UD JAR) TOP (13:32)
[2017-11-16] MEDS: ENOXAPARIN 100 MG/ML SYG SC (13:33)
[2017-11-16] MEDS: SOD CHLORIDE 0.9% 1,000 ML IV (16:57)
[2017-11-16] MEDS: MAGNESIUM SULFATE 2 GM/50 ML 50 ML IVPB (17:06)
[2017-11-16] MEDS: MONTELUKAST 10 MG TAB PO (20:11)
[2017-11-16] MEDS: DIPHENHYDRAMINE 1%/ZINC 28.3 GM CR TOP (20:13)
[2017-11-17] MEDS: LEVALBUTEROL (NEB) 0.63 MG/3 ML AMP HHN ×4 (01:25→20:53)
[2017-11-17] MEDS: PANTOPRAZOLE (EC) 40 MG TAB PO (05:36)
[2017-11-17 06:23] LABS: ADD MAN DIFF? NO
[2017-11-17 06:25] LABS: WHITE BLOOD COUNT 14.9 10^3/ul (4.8-10.8)
[2017-11-17 06:25] LABS: BASOPHILS % 0.1 % (0.0-2.0); EOSINOPHILS # 0.1 10^3/ul (0.0-0.5); EOSINOPHILS % 0.5 % (0.0-7.0); HEMATOCRIT 32.1 % (42.0-52.0); HEMOGLOBIN 10.9 g/dl (14.0-18.0); LYMPHOCYTES # 1.2 10^3/ul (0.8-2.9); LYMPHOCYTES % 7.8 % (15.0-51.0); MEAN CORPUSCULAR HEMOGLOBIN 30.4 pg (29.0-33.0); MEAN CORPUSCULAR VOLUME 89.7 fl (82.0-101.0); MEAN PLATELET VOLUME 10.4 fl (7.4-10.4); MONOCYTES % 6.4 % (0.0-11.0); NEUTROPHIL # 12.6 10^3/ul (1.6-7.5); NEUTROPHILS % 84.5 % (39.0-77.0); PLATELET COUNT 167 10^3/UL (140-415); RED BLOOD COUNT 3.58 10^6/ul (4.70-6.10); RED CELL DISTRIBUTION WIDTH 13.4 % (11.5-14.5)
[2017-11-17] MEDS: LEVOTHYROXINE 50 MCG TAB PO (06:48)
[2017-11-17 07:03] LABS: MAGNESIUM 2.1 mg/dl (1.7-2.5)
[2017-11-17 07:14] LABS: ANION GAP 14 (8-16); BLOOD UREA NITROGEN 76 mg/dl (7-20); CALCIUM 8.8 mg/dl (8.4-10.2); CARBON DIOXIDE 26 mmol/L (21-31); CHLORIDE 91 mmol/L (97-110); CREATININE 1.78 mg/dl (0.61-1.24); GLUCOSE 103 mg/dl (70-220); SODIUM 126 mmol/L (135-144)
[2017-11-17] MEDS: METHYLPREDNISOLONE 40 MG INJ IV (08:35)
[2017-11-17] MEDS: VITAMIN B COMPLEX/VIT C CAP PO (08:35)
[2017-11-17] MEDS: DOCUSATE SODIUM 100 MG CAP PO (08:35)
[2017-11-17] MEDS: GABAPENTIN 100 MG CAP PO ×3 (08:35→20:20)
[2017-11-17] MEDS: SODIUM CHLORIDE 1 GM TAB PO ×2 (08:35→20:20)
[2017-11-17] MEDS: ASCORBIC ACID 500 MG TAB PO (08:35)
[2017-11-17] MEDS: NYSTATIN SUSP 5 ML CUP PO ×4 (08:36→20:20)
[2017-11-17] MEDS: COLLAGENASE 5 GM (UD JAR) TOP (08:36)
[2017-11-17] MEDS: MUPIROCIN 2% 22 GM OINT TOP ×2 (08:36→21:58)
[2017-11-17] MEDS: METOPROLOL (XL) 25 MG TAB PO ×2 (08:36→20:22)
[2017-11-17] MEDS: SOD CHLORIDE 0.9% 1,000 ML IV (12:27)
[2017-11-17] MEDS: ENOXAPARIN 100 MG/ML SYG SC (13:42)
[2017-11-17] MEDS: MONTELUKAST 10 MG TAB PO (20:20)
[2017-11-17] MEDS: traMADol 50 MG TAB PO (20:22)
[2017-11-17] MEDS: GUAIFENESIN/CODEINE 5ML CUP PO (20:22)
[2017-11-18] MEDS: LEVALBUTEROL (NEB) 0.63 MG/3 ML AMP HHN ×4 (01:38→19:36)
[2017-11-18 05:14] LABS: ADD MAN DIFF? NO
[2017-11-18 05:21] LABS: BASOPHILS % 0.1 % (0.0-2.0); EOSINOPHILS # 0.1 10^3/ul (0.0-0.5); EOSINOPHILS % 0.5 % (0.0-7.0); HEMATOCRIT 30.3 % (42.0-52.0); HEMOGLOBIN 10.3 g/dl (14.0-18.0); LYMPHOCYTES # 1.1 10^3/ul (0.8-2.9); LYMPHOCYTES % 7.3 % (15.0-51.0); MEAN CORPUSCULAR HEMOGLOBIN 30.1 pg (29.0-33.0); MEAN CORPUSCULAR VOLUME 88.6 fl (82.0-101.0); MEAN PLATELET VOLUME 10.4 fl (7.4-10.4); MONOCYTE # 0.9 10^3/ul (0.3-0.9); MONOCYTES % 6.3 % (0.0-11.0); NEUTROPHIL # 12.6 10^3/ul (1.6-7.5); NEUTROPHILS % 85.2 % (39.0-77.0); PLATELET COUNT 157 10^3/UL (140-415); RED BLOOD COUNT 3.42 10^6/ul (4.70-6.10); RED CELL DISTRIBUTION WIDTH 13.4 % (11.5-14.5)
[2017-11-18 05:21] LABS: WHITE BLOOD COUNT 14.8 10^3/ul (4.8-10.8)
[2017-11-18 05:52] LABS: ANION GAP 11 (8-16); BLOOD UREA NITROGEN 66 mg/dl (7-20); CALCIUM 8.7 mg/dl (8.4-10.2); CARBON DIOXIDE 24 mmol/L (21-31); CHLORIDE 98 mmol/L (97-110); CREATININE 1.79 mg/dl (0.61-1.24); GLUCOSE 122 mg/dl (70-220); POTASSIUM 5.4 mmol/L (3.5-5.1); SODIUM 128 mmol/L (135-144)
[2017-11-18] MEDS: PANTOPRAZOLE (EC) 40 MG TAB PO (06:17)
[2017-11-18] MEDS: LEVOTHYROXINE 50 MCG TAB PO (06:18)
[2017-11-18] MEDS: SOD CHLORIDE 0.9% 1,000 ML IV (08:00)
[2017-11-18] MEDS: NYSTATIN SUSP 5 ML CUP PO ×4 (08:52→21:28)
[2017-11-18] MEDS: METHYLPREDNISOLONE 40 MG INJ IV (08:52)
[2017-11-18] MEDS: VITAMIN B COMPLEX/VIT C CAP PO (08:52)
[2017-11-18] MEDS: ASCORBIC ACID 500 MG TAB PO (08:53)
[2017-11-18] MEDS: METOPROLOL (XL) 25 MG TAB PO ×2 (08:54→21:30)
[2017-11-18] MEDS: DOCUSATE SODIUM 100 MG CAP PO (08:54)
[2017-11-18] MEDS: APIXABAN 5 MG TABLET PO ×2 (08:54→21:28)
[2017-11-18] MEDS: GABAPENTIN 100 MG CAP PO ×3 (08:55→21:28)
[2017-11-18] MEDS: COLLAGENASE 5 GM (UD JAR) TOP (08:55)
[2017-11-18] MEDS: MUPIROCIN 2% 22 GM OINT TOP ×2 (08:56→21:30)
[2017-11-18] MEDS: SODIUM CHLORIDE 1 GM TAB PO ×2 (09:05→21:28)
[2017-11-18] MEDS: NA POLYST SULFON 15 GM/60 ML BTL PR (11:38)
[2017-11-18 15:38] LABS: HAAIG REFLEX REFLEX FILED
[2017-11-18 16:26] LABS: HEPATITIS B SURFACE ANTIGEN NEGATIVE (NEGATIVE)
[2017-11-18 16:44] LABS: HEPATITIS B CORE ANTIBODY REACTIVE (NEGATIVE); HEPATITIS C VIRAL ANTIBODY NEGATIVE (NEGATIVE)
[2017-11-18] MEDS: MONTELUKAST 10 MG TAB PO (21:29)
[2017-11-18] MEDS: traMADol 50 MG TAB PO (21:34)
[2017-11-19] MEDS: LACTULOSE 30ML CUP PO (00:29)
[2017-11-19] MEDS: LEVALBUTEROL (NEB) 0.63 MG/3 ML AMP HHN ×4 (02:23→20:35)
[2017-11-19 04:56] LABS: ADD MAN DIFF? NO
[2017-11-19 05:10] LABS: WHITE BLOOD COUNT 13.9 10^3/ul (4.8-10.8)
[2017-11-19 05:10] LABS: BASOPHILS % 0.1 % (0.0-2.0); EOSINOPHILS # 0.1 10^3/ul (0.0-0.5); HEMATOCRIT 31.2 % (42.0-52.0); HEMOGLOBIN 10.4 g/dl (14.0-18.0); LYMPHOCYTES % 7.4 % (15.0-51.0); MEAN CORPUSCULAR HGB CONC 33.3 g/dl (32.0-37.0); MEAN CORPUSCULAR VOLUME 89.9 fl (82.0-101.0); MEAN PLATELET VOLUME 10.6 fl (7.4-10.4); NEUTROPHIL # 11.7 10^3/ul (1.6-7.5); NEUTROPHILS % 83.9 % (39.0-77.0); PLATELET COUNT 146 10^3/UL (140-415); RED BLOOD COUNT 3.47 10^6/ul (4.70-6.10); RED CELL DISTRIBUTION WIDTH 13.6 % (11.5-14.5)
[2017-11-19 05:58] LABS: ANION GAP 12 (8-16); BLOOD UREA NITROGEN 63 mg/dl (7-20); CALCIUM 8.9 mg/dl (8.4-10.2); CARBON DIOXIDE 26 mmol/L (21-31); CHLORIDE 97 mmol/L (97-110); GLUCOSE 116 mg/dl (70-220); POTASSIUM 5.6 mmol/L (3.5-5.1); SODIUM 129 mmol/L (135-144)
[2017-11-19] MEDS: PANTOPRAZOLE (EC) 40 MG TAB PO (06:11)
[2017-11-19] MEDS: LEVOTHYROXINE 50 MCG TAB PO (06:11)
[2017-11-19] MEDS: NA POLYST SULFON 15 GM/60 ML BTL PO (06:33)
[2017-11-19] MEDS: NYSTATIN SUSP 5 ML CUP PO ×4 (08:45→20:57)
[2017-11-19] MEDS: ASCORBIC ACID 500 MG TAB PO (08:46)
[2017-11-19] MEDS: VITAMIN B COMPLEX/VIT C CAP PO (08:46)
[2017-11-19] MEDS: SODIUM CHLORIDE 1 GM TAB PO ×2 (08:46→20:56)
[2017-11-19] MEDS: COLLAGENASE 5 GM (UD JAR) TOP (08:46)
[2017-11-19] MEDS: METOPROLOL (XL) 25 MG TAB PO ×2 (08:46→20:57)
[2017-11-19] MEDS: GABAPENTIN 100 MG CAP PO ×3 (08:46→20:56)
[2017-11-19] MEDS: traMADol 50 MG TAB PO ×3 (08:47→20:55)
[2017-11-19] MEDS: DOCUSATE SODIUM 100 MG CAP PO (08:47)
[2017-11-19] MEDS: APIXABAN 5 MG TABLET PO ×2 (08:47→20:59)
[2017-11-19] MEDS: MUPIROCIN 2% 22 GM OINT TOP ×2 (08:55→20:58)
[2017-11-19] MEDS: DIPHENHYDRAMINE 1%/ZINC 28.3 GM CR TOP (13:11)
[2017-11-19] MEDS ORDERED: DIPHENHYDRAMINE 25 MG CAP PO (13:30)
[2017-11-19] MEDS: GUAIFENESIN/CODEINE 5ML CUP PO (18:14)
[2017-11-19] MEDS: MONTELUKAST 10 MG TAB PO (20:57)
[2017-11-20] MEDS: LEVALBUTEROL (NEB) 0.63 MG/3 ML AMP HHN ×4 (01:48→19:45)
[2017-11-20 04:50] LABS: ADD MAN DIFF? NO
[2017-11-20 04:57] LABS: BASOPHILS % 0.3 % (0.0-2.0); EOSINOPHILS # 1.1 10^3/ul (0.0-0.5); EOSINOPHILS % 9.4 % (0.0-7.0); HEMATOCRIT 29.5 % (42.0-52.0); HEMOGLOBIN 9.9 g/dl (14.0-18.0); LYMPHOCYTES # 1.1 10^3/ul (0.8-2.9); LYMPHOCYTES % 9.1 % (15.0-51.0); MEAN CORPUSCULAR HEMOGLOBIN 29.9 pg (29.0-33.0); MEAN CORPUSCULAR HGB CONC 33.6 g/dl (32.0-37.0); MEAN CORPUSCULAR VOLUME 89.1 fl (82.0-101.0); MEAN PLATELET VOLUME 10.1 fl (7.4-10.4); MONOCYTE # 0.8 10^3/ul (0.3-0.9); MONOCYTES % 7.1 % (0.0-11.0); NEUTROPHIL # 8.6 10^3/ul (1.6-7.5); NEUTROPHILS % 73.5 % (39.0-77.0); PLATELET COUNT 117 10^3/UL (140-415); RED BLOOD COUNT 3.31 10^6/ul (4.70-6.10); RED CELL DISTRIBUTION WIDTH 13.5 % (11.5-14.5)
[2017-11-20 04:57] LABS: WHITE BLOOD COUNT 11.7 10^3/ul (4.8-10.8)
[2017-11-20 05:23] LABS: ANION GAP 11 (8-16); BLOOD UREA NITROGEN 55 mg/dl (7-20); CALCIUM 8.4 mg/dl (8.4-10.2); CARBON DIOXIDE 27 mmol/L (21-31); CHLORIDE 94 mmol/L (97-110); CREATININE 1.53 mg/dl (0.61-1.24); GLUCOSE 97 mg/dl (70-220); SODIUM 127 mmol/L (135-144)
[2017-11-20] MEDS: LEVOTHYROXINE 50 MCG TAB PO (06:08)
[2017-11-20] MEDS: PANTOPRAZOLE (EC) 40 MG TAB PO (06:08)
[2017-11-20] MEDS: VITAMIN B COMPLEX/VIT C CAP PO (09:01)
[2017-11-20] MEDS: SODIUM CHLORIDE 1 GM TAB PO ×2 (09:02→21:00)
[2017-11-20] MEDS: GABAPENTIN 100 MG CAP PO ×3 (09:02→21:00)
[2017-11-20] MEDS: APIXABAN 5 MG TABLET PO ×2 (09:02→21:00)
[2017-11-20] MEDS: ASCORBIC ACID 500 MG TAB PO (09:02)
[2017-11-20] MEDS: METOPROLOL (XL) 25 MG TAB PO ×2 (09:02→21:00)
[2017-11-20] MEDS: DOCUSATE SODIUM 100 MG CAP PO (09:02)
[2017-11-20] MEDS: NYSTATIN SUSP 5 ML CUP PO ×4 (09:03→21:00)
[2017-11-20] MEDS: COLLAGENASE 5 GM (UD JAR) TOP (09:03)
[2017-11-20] MEDS: MUPIROCIN 2% 22 GM OINT TOP ×2 (09:03→22:25)
[2017-11-20] MEDS: traMADol 50 MG TAB PO (09:06)
[2017-11-20] MEDS: TOLVAPTAN 15 MG TABLET PO (13:30)
[2017-11-20] MEDS: ACETAMINOPHEN 325 MG TAB PO (13:42)
[2017-11-20] MEDS: FLUCONAZOLE 100 MG TAB PO (13:50)
[2017-11-20] MEDS ORDERED: VANCOMYCIN IV PER PHARMACY XX (14:00)
[2017-11-20] MEDS: SOD CHLORIDE 0.9% 500 ML IV (14:57)
[2017-11-20 15:07] LABS: SODIUM 127 mmol/L (135-144)
[2017-11-20 15:07] LABS: ALANINE AMINOTRANSFERASE 123 IU/L (13-69); ASPARTATE AMINO TRANSFERASE 67 IU/L (15-46)
[2017-11-20 15:42] LABS: ANION GAP 16 (8-16); BLOOD UREA NITROGEN 53 mg/dl (7-20); CALCIUM 8.6 mg/dl (8.4-10.2); CARBON DIOXIDE 22 mmol/L (21-31); CHLORIDE 93 mmol/L (97-110); CREATININE 1.41 mg/dl (0.61-1.24); GLUCOSE 114 mg/dl (70-220); SODIUM 126 mmol/L (135-144)
[2017-11-20 15:45] LABS: LACTIC ACID 3.2 mmol/L (0.5-2.0)
[2017-11-20] MEDS ORDERED: FUROSEMIDE 40 MG INJ IV (17:30)
[2017-11-20 17:38] LABS: Allen Test ACCEPTAB; Arterial Base Excess -0.7 mmol/L (-3.0-3); Arterial Blood Gas Oxygen Sat 97.5 mmHG (95.0-100.0); Arterial COHb 0.7 % (0.0-3.0); Arterial Fraction of Oxyhgb 96.7 % (93.0-99.0); Arterial HCO3 22.8 mmol/L (22.0-26.0); Arterial MetHb 0.1 % (0.0-1.5); Arterial Total Hemglobin 12.6 g/dl (12.0-18.0); MODE NASAL CANNULA; Site Right Radial
[2017-11-20] MEDS: MEROPENEM 500MG/50 ML (PMX) 50 ML IVPB (17:46)
[2017-11-20] MEDS: VANCOMYCIN 1.75 GM in SOD CHLORIDE 0.9% 500 ML IVPB (17:46)
[2017-11-20] MEDS: DILTIAZEM-D5W 125MG/125ML DRIP 125 ML IV (17:57)
[2017-11-20] MEDS: FUROSEMIDE 40 MG INJ IV (18:02)
[2017-11-20 19:56] LABS: SODIUM 128 mmol/L (135-144)
[2017-11-20] MEDS: MONTELUKAST 10 MG TAB PO (21:00)
[2017-11-20] MEDS: METOCLOPRAMIDE 10 MG INJ IV (21:18)
[2017-11-20] MEDS: ACETAMINOPHEN 650 MG SUPP PR (21:18)
[2017-11-20] MEDS: FLUCONAZOLE 100 MG/50 ML (PMX) 50 ML IVPB (21:19)
[2017-11-20 23:41] LABS: LACTIC ACID 2.7 mmol/L (0.5-2.0)
[2017-11-21] MEDS: MEROPENEM 500MG/50 ML (PMX) 50 ML IVPB ×3 (00:01→20:22)
[2017-11-21] MEDS: LEVALBUTEROL (NEB) 0.63 MG/3 ML AMP HHN ×4 (01:47→19:52)
[2017-11-21] MEDS: COLLAGENASE 5 GM (UD JAR) TOP ×2 (03:38→19:00)
[2017-11-21] MEDS: PENDING SANTYL ORDER FOR WOUND CARE XX (03:39)
[2017-11-21 05:19] LABS: WHITE BLOOD COUNT 30.5 10^3/ul (4.8-10.8)
[2017-11-21 05:19] LABS: ABNORMAL IP MESSAGE 1; HEMATOCRIT 33.6 % (42.0-52.0); HEMOGLOBIN 11.4 g/dl (14.0-18.0); MEAN CORPUSCULAR HEMOGLOBIN 30.4 pg (29.0-33.0); MEAN CORPUSCULAR HGB CONC 33.9 g/dl (32.0-37.0); MEAN CORPUSCULAR VOLUME 89.6 fl (82.0-101.0); PLATELET COUNT 117 10^3/UL (140-415); POSITIVE DIFF @See below; RED BLOOD COUNT 3.75 10^6/ul (4.70-6.10); RED CELL DISTRIBUTION WIDTH 13.8 % (11.5-14.5)
[2017-11-21 05:26] LABS: ADD MAN DIFF? YES
[2017-11-21] MEDS: PANTOPRAZOLE 40 MG INJ IV (05:43)
[2017-11-21] MEDS: METOCLOPRAMIDE 10 MG INJ IV ×3 (05:44→23:18)
[2017-11-21] MEDS: LEVOTHYROXINE 100 MCG VIAL IV (05:44)
[2017-11-21 05:55] LABS: SODIUM 128 mmol/L (135-144)
[2017-11-21 05:57] LABS: LACTIC ACID 1.7 mmol/L (0.5-2.0)
[2017-11-21 06:30] LABS: ANION GAP 14 (8-16); BLOOD UREA NITROGEN 58 mg/dl (7-20); CALCIUM 8.4 mg/dl (8.4-10.2); CARBON DIOXIDE 25 mmol/L (21-31); CHLORIDE 96 mmol/L (97-110); CREATININE 1.59 mg/dl (0.61-1.24); GLUCOSE 113 mg/dl (70-220); POTASSIUM 4.6 mmol/L (3.5-5.1); SODIUM 130 mmol/L (135-144)
[2017-11-21] MEDS: DILTIAZEM-D5W 125MG/125ML DRIP 125 ML IV (07:46)
[2017-11-21] MEDS: ACETAMINOPHEN 650 MG SUPP PR (08:46)
[2017-11-21] MEDS ORDERED: METOPROLOL 25 MG TAB GTB (09:00)
[2017-11-21 09:55] LABS: ACANTHOCYTES 1+ (0-0); ANISOCYTOSIS 1+ (0-0); BAND NEUTROPHILS #M 2.7 10^3/ul (0.0-0.6); BAND NEUTROPHILS % (M) 9 % (0-4); BASOPHIL #M 0.3 10^3/ul (0.0-0.0); BASOPHILS % (M) 1 % (0-2); BURR CELLS 1+ (0-0); EOSINOPHILS % (M) 1 % (0-7); LYMPHOCYTES #M 0.6 10^3/ul (0.8-2.9); LYMPHOCYTES % (M) 2 % (15-51); MONOCYTE #M 0.9 10^3/ul (0.3-0.9); MONOCYTES % (M) 3 % (0-11); OVALOCYTES 1+ (0-0); PLATELET ESTIMATE DECREASED; POIKILOCYTOSIS 1+ (0-0); SCHISTOCYTES 1+ (0-0); SEG NEUT #M 26.4 10^3/ul (1.6-7.5); SEGMENTED NEUTROPHILS (M) % 84 % (39-77); SMUDGE%M 5 % (0-0)
[2017-11-21] MEDS ORDERED: METOPROLOL 25 MG TAB PO (10:03)
[2017-11-21] MEDS: DOCUSATE SODIUM 10 MG/ML (10ML CUP) NGT (12:19)
[2017-11-21] MEDS: METOPROLOL 25 MG TAB NGT ×2 (12:36→20:20)
[2017-11-21] MEDS: ASCORBIC ACID 500 MG TAB PO (12:37)
[2017-11-21] MEDS: APIXABAN 5 MG TABLET PO ×2 (12:37→20:19)
[2017-11-21] MEDS: DOCUSATE SODIUM 100 MG CAP PO (12:37)
[2017-11-21] MEDS: GABAPENTIN 100 MG CAP PO ×3 (12:38→20:19)
[2017-11-21] MEDS: SODIUM CHLORIDE 1 GM TAB PO ×2 (12:38→20:22)
[2017-11-21] MEDS: VITAMIN B COMPLEX/VIT C CAP PO (12:38)
[2017-11-21] MEDS: NYSTATIN SUSP 5 ML CUP PO ×4 (12:39→20:22)
[2017-11-21 15:06] LABS: LACTIC ACID 1.2 mmol/L (0.5-2.0)
[2017-11-21] MEDS: VANCOMYCIN 1.25 GM in SOD CHLORIDE 0.9% 250 ML IVPB (16:37)
[2017-11-21] MEDS: MUPIROCIN 2% 22 GM OINT TOP ×2 (16:37→21:08)
[2017-11-21] MEDS: FLUCONAZOLE 100 MG/50 ML (PMX) 50 ML IVPB (16:38)
[2017-11-21] MEDS: MONTELUKAST 10 MG TAB PO (20:19)
[2017-11-22] MEDS: ACETAMINOPHEN 325 MG TAB PO ×2 (00:12→10:58)
[2017-11-22] MEDS: LEVALBUTEROL (NEB) 0.63 MG/3 ML AMP HHN ×4 (01:20→20:47)
[2017-11-22] MEDS: LEVOTHYROXINE 100 MCG VIAL IV (05:22)
[2017-11-22] MEDS: METOCLOPRAMIDE 10 MG INJ IV ×3 (05:22→22:30)
[2017-11-22] MEDS: PANTOPRAZOLE 40 MG INJ IV (05:22)
[2017-11-22 05:27] LABS: ADD MAN DIFF? NO
[2017-11-22 05:33] LABS: WHITE BLOOD COUNT 15.1 10^3/ul (4.8-10.8)
[2017-11-22 05:33] LABS: ABNORMAL IP MESSAGE 1; BASOPHILS % 0.1 % (0.0-2.0); EOSINOPHILS # 0.2 10^3/ul (0.0-0.5); EOSINOPHILS % 1.2 % (0.0-7.0); HEMATOCRIT 27.5 % (42.0-52.0); HEMOGLOBIN 9.5 g/dl (14.0-18.0); LYMPHOCYTES # 0.8 10^3/ul (0.8-2.9); LYMPHOCYTES % 5.3 % (15.0-51.0); MEAN CORPUSCULAR HEMOGLOBIN 30.4 pg (29.0-33.0); MEAN CORPUSCULAR HGB CONC 34.5 g/dl (32.0-37.0); MEAN CORPUSCULAR VOLUME 87.9 fl (82.0-101.0); MEAN PLATELET VOLUME 10.6 fl (7.4-10.4); MONOCYTE # 0.6 10^3/ul (0.3-0.9); MONOCYTES % 3.8 % (0.0-11.0); NEUTROPHIL # 13.4 10^3/ul (1.6-7.5); NEUTROPHILS % 88.9 % (39.0-77.0); PLATELET COUNT 90 10^3/UL (140-415); POSITIVE DIFF @See below; RED BLOOD COUNT 3.13 10^6/ul (4.70-6.10)
[2017-11-22] MEDS: traMADol 50 MG TAB PO ×2 (06:05→17:45)
[2017-11-22 06:51] LABS: ANION GAP 10 (8-16); BLOOD UREA NITROGEN 49 mg/dl (7-20); CALCIUM 8.4 mg/dl (8.4-10.2); CARBON DIOXIDE 26 mmol/L (21-31); CHLORIDE 102 mmol/L (97-110); CREATININE 1.41 mg/dl (0.61-1.24); GLUCOSE 134 mg/dl (70-220); POTASSIUM 3.5 mmol/L (3.5-5.1); SODIUM 134 mmol/L (135-144)
[2017-11-22 08:55] LABS: ANISOCYTOSIS 1+ (0-0); BAND NEUTROPHILS #M 0.3 10^3/ul (0.0-0.6); BAND NEUTROPHILS % (M) 2 % (0-4); EOSINOPHILS % (M) 1 % (0-7); LYMPHOCYTES #M 0.7 10^3/ul (0.8-2.9); LYMPHOCYTES % (M) 5 % (15-51); MONOCYTE #M 0.3 10^3/ul (0.3-0.9); MONOCYTES % (M) 2 % (0-11); PLATELET ESTIMATE DECREASED; SEG NEUT #M 13.6 10^3/ul (1.6-7.5); SEGMENTED NEUTROPHILS (M) % 90 % (39-77); SMUDGE%M 14 % (0-0)
[2017-11-22] MEDS: MEROPENEM 500MG/50 ML (PMX) 50 ML IVPB ×2 (09:36→20:27)
[2017-11-22] MEDS: METOPROLOL 25 MG TAB NGT ×2 (09:38→20:28)
[2017-11-22] MEDS: SODIUM CHLORIDE 1 GM TAB PO ×2 (09:38→20:28)
[2017-11-22] MEDS: ASCORBIC ACID 500 MG TAB PO (09:38)
[2017-11-22] MEDS: NYSTATIN SUSP 5 ML CUP PO ×4 (09:38→20:28)
[2017-11-22] MEDS: VITAMIN B COMPLEX/VIT C CAP PO (09:39)
[2017-11-22] MEDS: GABAPENTIN 100 MG CAP PO ×3 (09:39→20:28)
[2017-11-22] MEDS: APIXABAN 5 MG TABLET PO ×2 (09:39→20:29)
[2017-11-22] MEDS: MUPIROCIN 2% 22 GM OINT TOP ×2 (09:41→20:28)
[2017-11-22] MEDS: DOCUSATE SODIUM 100 MG CAP PO (10:57)
[2017-11-22] MEDS ORDERED: POTASSIUM CHLORIDE (SR) 20 MEQ TAB PO (15:43)
[2017-11-22] MEDS ORDERED: FUROSEMIDE 20 MG INJ IV (16:00)
[2017-11-22] MEDS: POTASSIUM CHLORIDE (SR) 20 MEQ TAB PO (16:46)
[2017-11-22] MEDS: FUROSEMIDE 20 MG INJ IV (16:47)
[2017-11-22] MEDS: VANCOMYCIN 1.25 GM in SOD CHLORIDE 0.9% 250 ML IVPB (16:47)
[2017-11-22] MEDS: MONTELUKAST 10 MG TAB PO (20:28)
[2017-11-23] MEDS: LEVALBUTEROL (NEB) 0.63 MG/3 ML AMP HHN ×4 (01:46→19:28)
[2017-11-23] MEDS: GUAIFENESIN/CODEINE 5ML CUP PO (03:59)
[2017-11-23] MEDS: LEVOTHYROXINE 50 MCG TAB PO (05:20)
[2017-11-23] MEDS: PANTOPRAZOLE (EC) 40 MG TAB PO (05:21)
[2017-11-23] MEDS: METOCLOPRAMIDE 10 MG INJ IV ×3 (05:21→22:09)
[2017-11-23 07:18] LABS: ADD MAN DIFF? NO
[2017-11-23 07:26] LABS: BASOPHILS % 0.1 % (0.0-2.0); EOSINOPHILS # 0.2 10^3/ul (0.0-0.5); EOSINOPHILS % 1.5 % (0.0-7.0); HEMATOCRIT 28.5 % (42.0-52.0); HEMOGLOBIN 9.5 g/dl (14.0-18.0); LYMPHOCYTES # 0.8 10^3/ul (0.8-2.9); LYMPHOCYTES % 5.5 % (15.0-51.0); MEAN CORPUSCULAR HGB CONC 33.3 g/dl (32.0-37.0); MEAN CORPUSCULAR VOLUME 89.9 fl (82.0-101.0); MEAN PLATELET VOLUME 10.8 fl (7.4-10.4); MONOCYTE # 0.6 10^3/ul (0.3-0.9); MONOCYTES % 4.1 % (0.0-11.0); NEUTROPHIL # 12.1 10^3/ul (1.6-7.5); NEUTROPHILS % 88.4 % (39.0-77.0); PLATELET COUNT 103 10^3/UL (140-415); RED BLOOD COUNT 3.17 10^6/ul (4.70-6.10); RED CELL DISTRIBUTION WIDTH 13.9 % (11.5-14.5)
[2017-11-23 07:26] LABS: WHITE BLOOD COUNT 13.7 10^3/ul (4.8-10.8)
[2017-11-23 08:01] LABS: ANION GAP 11 (5-13); BLOOD UREA NITROGEN 47 mg/dl (7-20); CALCIUM 8.4 mg/dl (8.4-10.2); CARBON DIOXIDE 24 mmol/L (21-31); CHLORIDE 98 mmol/L (97-110); CREATININE 1.41 mg/dl (0.61-1.24); GLUCOSE 142 mg/dl (70-220); POTASSIUM 3.8 mmol/L (3.5-5.1); SODIUM 133 mmol/L (135-144)
[2017-11-23] MEDS: COLLAGENASE 5 GM (UD JAR) TOP (08:42)
[2017-11-23] MEDS: VITAMIN B COMPLEX/VIT C CAP PO (08:43)
[2017-11-23] MEDS: ASCORBIC ACID 500 MG TAB PO (08:43)
[2017-11-23] MEDS: SODIUM CHLORIDE 1 GM TAB PO ×2 (08:43→20:07)
[2017-11-23] MEDS: GABAPENTIN 100 MG CAP PO ×3 (08:43→20:07)
[2017-11-23] MEDS: METOPROLOL 25 MG TAB NGT (08:44)
[2017-11-23] MEDS: DOCUSATE SODIUM 100 MG CAP PO (08:44)
[2017-11-23] MEDS: APIXABAN 5 MG TABLET PO ×2 (08:45→20:06)
[2017-11-23] MEDS: FUROSEMIDE 20 MG INJ IV (08:45)
[2017-11-23] MEDS: NYSTATIN SUSP 5 ML CUP PO ×4 (08:49→20:17)
[2017-11-23] MEDS: MUPIROCIN 2% 22 GM OINT TOP ×2 (08:49→20:07)
[2017-11-23] MEDS: MEROPENEM 500MG/50 ML (PMX) 50 ML IVPB (08:50)
[2017-11-23] MEDS: DIGOXIN 500 MCG INJ IV (14:00)
[2017-11-23 15:26] LABS: VANCOMYCIN,TROUGH 13.4 ug/ml (10.0-20.0)
[2017-11-23] MEDS: ACETAMINOPHEN 325 MG TAB PO (15:53)
[2017-11-23] MEDS: METOPROLOL 5 MG INJ IV (15:54)
[2017-11-23] MEDS: VANCOMYCIN 1.25 GM in SOD CHLORIDE 0.9% 250 ML IVPB (16:41)
[2017-11-23] MEDS: MONTELUKAST 10 MG TAB PO (20:07)
[2017-11-23] MEDS: METOPROLOL 50 MG TAB NGT (20:07)
[2017-11-24] MEDS: LEVALBUTEROL (NEB) 0.63 MG/3 ML AMP HHN ×4 (02:07→19:21)
[2017-11-24] MEDS: LEVOTHYROXINE 50 MCG TAB PO (06:09)
[2017-11-24] MEDS: METOCLOPRAMIDE 10 MG INJ IV ×3 (06:09→22:13)
[2017-11-24] MEDS: PANTOPRAZOLE (EC) 40 MG TAB PO (06:10)
[2017-11-24 06:59] LABS: AMMONIA < 9 umol/l (9-30)
[2017-11-24] MEDS: VITAMIN B COMPLEX/VIT C CAP PO (08:45)
[2017-11-24] MEDS: SODIUM CHLORIDE 1 GM TAB PO ×2 (08:45→20:22)
[2017-11-24] MEDS: DOCUSATE SODIUM 100 MG CAP PO ×2 (08:46→09:00)
[2017-11-24] MEDS: ASCORBIC ACID 500 MG TAB PO (08:46)
[2017-11-24] MEDS: NYSTATIN SUSP 5 ML CUP PO ×4 (08:46→20:22)
[2017-11-24] MEDS: GABAPENTIN 100 MG CAP PO ×3 (08:46→20:22)
[2017-11-24] MEDS: APIXABAN 5 MG TABLET PO ×2 (08:47→20:22)
[2017-11-24] MEDS: FUROSEMIDE 20 MG INJ IV (08:47)
[2017-11-24] MEDS: MUPIROCIN 2% 22 GM OINT TOP ×2 (08:48→20:23)
[2017-11-24] MEDS: METOPROLOL 50 MG TAB NGT ×2 (08:48→20:22)
[2017-11-24] MEDS: COLLAGENASE 5 GM (UD JAR) TOP (08:49)
[2017-11-24 10:51] LABS: ADD MAN DIFF? NO
[2017-11-24 10:54] LABS: BASOPHILS % 0.2 % (0.0-2.0); EOSINOPHILS # 0.1 10^3/ul (0.0-0.5); EOSINOPHILS % 1.6 % (0.0-7.0); HEMOGLOBIN 10.3 g/dl (14.0-18.0); LYMPHOCYTES # 0.8 10^3/ul (0.8-2.9); LYMPHOCYTES % 8.7 % (15.0-51.0); MEAN CORPUSCULAR HEMOGLOBIN 29.9 pg (29.0-33.0); MEAN CORPUSCULAR HGB CONC 33.2 g/dl (32.0-37.0); MEAN CORPUSCULAR VOLUME 90.1 fl (82.0-101.0); MEAN PLATELET VOLUME 10.6 fl (7.4-10.4); MONOCYTE # 0.4 10^3/ul (0.3-0.9); MONOCYTES % 4.7 % (0.0-11.0); NEUTROPHIL # 7.5 10^3/ul (1.6-7.5); NEUTROPHILS % 84.2 % (39.0-77.0); PLATELET COUNT 112 10^3/UL (140-415); RED BLOOD COUNT 3.44 10^6/ul (4.70-6.10); RED CELL DISTRIBUTION WIDTH 13.4 % (11.5-14.5)
[2017-11-24 10:54] LABS: WHITE BLOOD COUNT 8.9 10^3/ul (4.8-10.8)
[2017-11-24 11:15] LABS: ALANINE AMINOTRANSFERASE 59 IU/L (13-69); ALBUMIN 2.8 g/dl (3.3-4.9); ALKALINE PHOSPHATASE 118 IU/L (42-121); ANION GAP 8 (5-13); ASPARTATE AMINO TRANSFERASE 39 IU/L (15-46); BLOOD UREA NITROGEN 46 mg/dl (7-20); CALCIUM 8.8 mg/dl (8.4-10.2); CARBON DIOXIDE 30 mmol/L (21-31); CHLORIDE 93 mmol/L (97-110); CREATININE 1.47 mg/dl (0.61-1.24); GLUCOSE 124 mg/dl (70-220); POTASSIUM 3.6 mmol/L (3.5-5.1); SODIUM 131 mmol/L (135-144); TOTAL PROTEIN 6.3 g/dl (6.1-8.1)
[2017-11-24] MEDS: BALSAM PERU/CASTOR OIL 60 GM TUBE TOP ×2 (11:52→20:23)
[2017-11-24] MEDS: VANCOMYCIN 1.25 GM in SOD CHLORIDE 0.9% 250 ML IVPB (16:09)
[2017-11-24] MEDS: MONTELUKAST 10 MG TAB PO (20:22)
[2017-11-24] MEDS ORDERED: VITAMIN A & D 5 GM OINT PACKET TOP (20:28)
[2017-11-25] MEDS: LEVALBUTEROL (NEB) 0.63 MG/3 ML AMP HHN ×5 (02:45→20:11)
[2017-11-25] MEDS: PANTOPRAZOLE (EC) 40 MG TAB PO (05:40)
[2017-11-25] MEDS: METOCLOPRAMIDE 10 MG INJ IV ×3 (05:40→22:13)
[2017-11-25] MEDS: LEVOTHYROXINE 50 MCG TAB PO (05:40)
[2017-11-25 06:26] LABS: ADD MAN DIFF? NO
[2017-11-25 06:28] LABS: ABNORMAL IP MESSAGE 1; BASOPHILS % 0.4 % (0.0-2.0); EOSINOPHILS # 0.6 10^3/ul (0.0-0.5); EOSINOPHILS % 7.8 % (0.0-7.0); HEMATOCRIT 28.4 % (42.0-52.0); HEMOGLOBIN 9.7 g/dl (14.0-18.0); LYMPHOCYTES # 1.3 10^3/ul (0.8-2.9); LYMPHOCYTES % 16.7 % (15.0-51.0); MEAN CORPUSCULAR HEMOGLOBIN 30.7 pg (29.0-33.0); MEAN CORPUSCULAR HGB CONC 34.2 g/dl (32.0-37.0); MEAN CORPUSCULAR VOLUME 89.9 fl (82.0-101.0); MEAN PLATELET VOLUME 10.8 fl (7.4-10.4); MONOCYTE # 0.5 10^3/ul (0.3-0.9); MONOCYTES % 6.8 % (0.0-11.0); NEUTROPHIL # 5.1 10^3/ul (1.6-7.5); NEUTROPHILS % 67.8 % (39.0-77.0); PLATELET COUNT 88 10^3/UL (140-415); POSITIVE DIFF @See below; RED BLOOD COUNT 3.16 10^6/ul (4.70-6.10); RED CELL DISTRIBUTION WIDTH 13.2 % (11.5-14.5)
[2017-11-25 06:28] LABS: WHITE BLOOD COUNT 7.5 10^3/ul (4.8-10.8)
[2017-11-25 07:04] LABS: ANION GAP 5 (5-13); BLOOD UREA NITROGEN 46 mg/dl (7-20); CALCIUM 8.5 mg/dl (8.4-10.2); CARBON DIOXIDE 31 mmol/L (21-31); CHLORIDE 95 mmol/L (97-110); CREATININE 1.43 mg/dl (0.61-1.24); GLUCOSE 115 mg/dl (70-220); POTASSIUM 3.7 mmol/L (3.5-5.1); SODIUM 131 mmol/L (135-144)
[2017-11-25] MEDS: GABAPENTIN 100 MG CAP PO ×3 (08:43→22:11)
[2017-11-25] MEDS: SODIUM CHLORIDE 1 GM TAB PO ×2 (08:43→22:11)
[2017-11-25] MEDS: ASCORBIC ACID 500 MG TAB PO (08:43)
[2017-11-25] MEDS: VITAMIN B COMPLEX/VIT C CAP PO (08:43)
[2017-11-25] MEDS: APIXABAN 5 MG TABLET PO ×2 (08:44→22:12)
[2017-11-25] MEDS: FUROSEMIDE 20 MG INJ IV (08:46)
[2017-11-25] MEDS: METOPROLOL 50 MG TAB NGT ×2 (08:47→22:13)
[2017-11-25] MEDS: NYSTATIN SUSP 5 ML CUP PO ×4 (08:47→22:11)
[2017-11-25] MEDS: COLLAGENASE 5 GM (UD JAR) TOP (08:47)
[2017-11-25] MEDS: MUPIROCIN 2% 22 GM OINT TOP ×2 (08:47→22:13)
[2017-11-25] MEDS: DOCUSATE SODIUM 100 MG CAP PO (08:48)
[2017-11-25] MEDS: BALSAM PERU/CASTOR OIL 60 GM TUBE TOP ×2 (08:48→22:14)
[2017-11-25] MEDS: VANCOMYCIN 1.25 GM in SOD CHLORIDE 0.9% 250 ML IVPB (16:08)
[2017-11-25] MEDS: MONTELUKAST 10 MG TAB PO (22:11)
[2017-11-25] MEDS: traMADol 50 MG TAB PO (22:58)
[2017-11-26] MEDS: LEVALBUTEROL (NEB) 0.63 MG/3 ML AMP HHN ×4 (01:16→20:17)
[2017-11-26] MEDS: METOCLOPRAMIDE 10 MG INJ IV ×3 (06:32→21:07)
[2017-11-26] MEDS: PANTOPRAZOLE (EC) 40 MG TAB PO (06:32)
[2017-11-26] MEDS: LEVOTHYROXINE 50 MCG TAB PO (06:32)
[2017-11-26] MEDS: NYSTATIN SUSP 5 ML CUP PO ×4 (08:20→20:44)
[2017-11-26] MEDS: COLLAGENASE 5 GM (UD JAR) TOP (08:20)
[2017-11-26] MEDS: FUROSEMIDE 20 MG INJ IV (08:21)
[2017-11-26] MEDS: ASCORBIC ACID 500 MG TAB PO (08:22)
[2017-11-26] MEDS: DOCUSATE SODIUM 100 MG CAP PO (08:22)
[2017-11-26] MEDS: GABAPENTIN 100 MG CAP PO ×3 (08:22→20:42)
[2017-11-26] MEDS: SODIUM CHLORIDE 1 GM TAB PO ×2 (08:22→20:43)
[2017-11-26] MEDS: VITAMIN B COMPLEX/VIT C CAP PO (08:22)
[2017-11-26] MEDS: METOPROLOL 50 MG TAB NGT ×2 (08:24→20:44)
[2017-11-26] MEDS: APIXABAN 5 MG TABLET PO ×2 (08:27→20:43)
[2017-11-26] MEDS ORDERED: VITAMIN A & D 5 GM OINT PACKET TOP ×2 (08:28→18:48)
[2017-11-26] MEDS: BALSAM PERU/CASTOR OIL 60 GM TUBE TOP ×2 (09:00→21:06)
[2017-11-26] MEDS: MUPIROCIN 2% 22 GM OINT TOP ×2 (09:00→20:45)
[2017-11-26] MEDS: PETROLATUM 28.35 GM JELLY TOP ×2 (16:42→20:44)
[2017-11-26] MEDS: VANCOMYCIN 1.25 GM in SOD CHLORIDE 0.9% 250 ML IVPB (16:42)
[2017-11-26] MEDS: FLUCONAZOLE 100 MG TAB PO (20:42)
[2017-11-26] MEDS: MONTELUKAST 10 MG TAB PO (20:43)
[2017-11-26] MEDS: ACETAMINOPHEN 325 MG TAB PO (21:07)
[2017-11-27] MEDS: LEVALBUTEROL (NEB) 0.63 MG/3 ML AMP HHN ×4 (01:24→21:20)
[2017-11-27] MEDS: LEVOTHYROXINE 50 MCG TAB PO (05:37)
[2017-11-27] MEDS: PANTOPRAZOLE (EC) 40 MG TAB PO (05:38)
[2017-11-27] MEDS: METOCLOPRAMIDE 10 MG INJ IV ×3 (05:38→21:06)
[2017-11-27 05:49] LABS: ADD MAN DIFF? NO
[2017-11-27 05:53] LABS: WHITE BLOOD COUNT 6.4 10^3/ul (4.8-10.8)
[2017-11-27 05:53] LABS: BASOPHILS % 0.5 % (0.0-2.0); EOSINOPHILS # 1.5 10^3/ul (0.0-0.5); EOSINOPHILS % 23.1 % (0.0-7.0); HEMOGLOBIN 9.8 g/dl (14.0-18.0); LYMPHOCYTES # 1.1 10^3/ul (0.8-2.9); LYMPHOCYTES % 17.3 % (15.0-51.0); MEAN CORPUSCULAR HEMOGLOBIN 29.6 pg (29.0-33.0); MEAN CORPUSCULAR HGB CONC 33.8 g/dl (32.0-37.0); MEAN CORPUSCULAR VOLUME 87.6 fl (82.0-101.0); MEAN PLATELET VOLUME 10.8 fl (7.4-10.4); MONOCYTE # 0.4 10^3/ul (0.3-0.9); MONOCYTES % 6.1 % (0.0-11.0); NEUTROPHIL # 3.4 10^3/ul (1.6-7.5); NEUTROPHILS % 52.7 % (39.0-77.0); PLATELET COUNT 112 10^3/UL (140-415); RED BLOOD COUNT 3.31 10^6/ul (4.70-6.10); RED CELL DISTRIBUTION WIDTH 12.9 % (11.5-14.5)
[2017-11-27 06:32] LABS: ANION GAP 9 (5-13); BLOOD UREA NITROGEN 48 mg/dl (7-20); CALCIUM 8.2 mg/dl (8.4-10.2); CARBON DIOXIDE 28 mmol/L (21-31); CHLORIDE 89 mmol/L (97-110); CREATININE 1.38 mg/dl (0.61-1.24); GLUCOSE 96 mg/dl (70-220); POTASSIUM 4.1 mmol/L (3.5-5.1); SODIUM 126 mmol/L (135-144)
[2017-11-27] MEDS: COLLAGENASE 5 GM (UD JAR) TOP (08:44)
[2017-11-27] MEDS: SODIUM CHLORIDE 1 GM TAB PO ×2 (08:44→21:06)
[2017-11-27] MEDS: NYSTATIN SUSP 5 ML CUP PO ×4 (08:44→21:06)
[2017-11-27] MEDS: ASCORBIC ACID 500 MG TAB PO (08:44)
[2017-11-27] MEDS: GABAPENTIN 100 MG CAP PO ×3 (08:44→21:06)
[2017-11-27] MEDS: FLUCONAZOLE 100 MG TAB PO ×2 (08:44→21:06)
[2017-11-27] MEDS: FUROSEMIDE 20 MG INJ IV (08:44)
[2017-11-27] MEDS: DOCUSATE SODIUM 100 MG CAP PO (08:45)
[2017-11-27] MEDS: METOPROLOL 50 MG TAB NGT ×2 (08:45→21:07)
[2017-11-27] MEDS: VITAMIN B COMPLEX/VIT C CAP PO (08:45)
[2017-11-27] MEDS: APIXABAN 5 MG TABLET PO ×2 (08:45→21:06)
[2017-11-27] MEDS: MUPIROCIN 2% 22 GM OINT TOP ×2 (08:46→21:08)
[2017-11-27] MEDS: BALSAM PERU/CASTOR OIL 60 GM TUBE TOP ×2 (08:46→21:09)
[2017-11-27] MEDS: PETROLATUM 28.35 GM JELLY TOP ×2 (08:46→21:08)
[2017-11-27] MEDS: VITAMIN A & D 5 GM OINT PACKET TOP ×2 (13:15→21:22)
[2017-11-27] MEDS: ACYCLOVIR 400 MG TAB PO ×2 (13:52→21:06)
[2017-11-27] MEDS: VANCOMYCIN 1.25 GM in SOD CHLORIDE 0.9% 250 ML IVPB (16:24)
[2017-11-27] MEDS: MONTELUKAST 10 MG TAB PO (21:06)
[2017-11-28] MEDS: LEVALBUTEROL (NEB) 0.63 MG/3 ML AMP HHN ×4 (03:30→20:33)
[2017-11-28] MEDS: LEVOTHYROXINE 50 MCG TAB PO (05:18)
[2017-11-28] MEDS: PANTOPRAZOLE (EC) 40 MG TAB PO (05:18)
[2017-11-28] MEDS: METOCLOPRAMIDE 10 MG INJ IV ×3 (05:18→20:40)
[2017-11-28] MEDS: DOCUSATE SODIUM 100 MG CAP PO (09:02)
[2017-11-28] MEDS: ASCORBIC ACID 500 MG TAB PO (09:02)
[2017-11-28] MEDS: APIXABAN 5 MG TABLET PO ×2 (09:02→20:38)
[2017-11-28] MEDS: METOPROLOL 50 MG TAB NGT ×2 (09:03→20:41)
[2017-11-28] MEDS: VITAMIN B COMPLEX/VIT C CAP PO (09:03)
[2017-11-28] MEDS: ACYCLOVIR 400 MG TAB PO ×2 (09:03→20:38)
[2017-11-28] MEDS: SODIUM CHLORIDE 1 GM TAB PO ×2 (09:03→20:38)
[2017-11-28] MEDS: GABAPENTIN 100 MG CAP PO ×3 (09:03→20:40)
[2017-11-28] MEDS: FLUCONAZOLE 100 MG TAB PO (09:03)
[2017-11-28] MEDS: NYSTATIN SUSP 5 ML CUP PO ×4 (09:04→20:38)
[2017-11-28] MEDS: PETROLATUM 28.35 GM JELLY TOP ×2 (09:04→20:40)
[2017-11-28] MEDS: FUROSEMIDE 20 MG INJ IV (09:04)
[2017-11-28] MEDS: COLLAGENASE 5 GM (UD JAR) TOP (09:04)
[2017-11-28] MEDS: VITAMIN A & D 5 GM OINT PACKET TOP ×2 (09:04→20:37)
[2017-11-28] MEDS: BALSAM PERU/CASTOR OIL 60 GM TUBE TOP ×2 (09:05→20:40)
[2017-11-28] MEDS: MUPIROCIN 2% 22 GM OINT TOP ×2 (09:05→20:39)
[2017-11-28 15:48] LABS: VANCOMYCIN,TROUGH 14.3 ug/ml (10.0-20.0)
[2017-11-28] MEDS: VANCOMYCIN 1.25 GM in SOD CHLORIDE 0.9% 250 ML IVPB (16:35)
[2017-11-28] MEDS: MONTELUKAST 10 MG TAB PO (20:38)
[2017-11-29] MEDS: LEVALBUTEROL (NEB) 0.63 MG/3 ML AMP HHN ×4 (02:08→20:09)
[2017-11-29] MEDS: METOCLOPRAMIDE 10 MG INJ IV ×3 (06:15→20:56)
[2017-11-29] MEDS: LEVOTHYROXINE 50 MCG TAB PO (06:15)
[2017-11-29] MEDS: PANTOPRAZOLE (EC) 40 MG TAB PO (06:15)
[2017-11-29 06:29] LABS: ADD MAN DIFF? NO
[2017-11-29 06:40] LABS: BASOPHILS % 0.5 % (0.0-2.0); HEMOGLOBIN 10.9 g/dl (14.0-18.0); LYMPHOCYTES # 1.3 10^3/ul (0.8-2.9); LYMPHOCYTES % 22.7 % (15.0-51.0); MEAN CORPUSCULAR HEMOGLOBIN 29.1 pg (29.0-33.0); MEAN CORPUSCULAR HGB CONC 34.1 g/dl (32.0-37.0); MEAN CORPUSCULAR VOLUME 85.6 fl (82.0-101.0); MEAN PLATELET VOLUME 10.9 fl (7.4-10.4); MONOCYTE # 0.4 10^3/ul (0.3-0.9); MONOCYTES % 6.2 % (0.0-11.0); NEUTROPHILS % 53.4 % (39.0-77.0); PLATELET COUNT 163 10^3/UL (140-415); RED BLOOD COUNT 3.74 10^6/ul (4.70-6.10)
[2017-11-29 06:40] LABS: WHITE BLOOD COUNT 5.7 10^3/ul (4.8-10.8)
[2017-11-29 06:58] LABS: INR 1.22; PROTIME 15.6 Sec (11.9-14.9); PT RATIO 1.2
[2017-11-29 06:59] LABS: PARTIAL THROMBOPLASTIN TIME 36.4 Sec (23.0-35.0)
[2017-11-29 07:06] LABS: MAGNESIUM 1.6 mg/dl (1.7-2.5)
[2017-11-29 07:09] LABS: ALANINE AMINOTRANSFERASE 42 IU/L (13-69); ALBUMIN/GLOBULIN RATIO 0.78; ALKALINE PHOSPHATASE 108 IU/L (42-121); ANION GAP 12 (5-13); ASPARTATE AMINO TRANSFERASE 33 IU/L (15-46); BILIRUBIN,INDIRECT 0.6 mg/dl (0-1.1); BILIRUBIN,TOTAL 0.6 mg/dl (0.2-1.3); BLOOD UREA NITROGEN 43 mg/dl (7-20); CALCIUM 8.5 mg/dl (8.4-10.2); CARBON DIOXIDE 23 mmol/L (21-31); CHLORIDE 93 mmol/L (97-110); CREATININE 1.49 mg/dl (0.61-1.24); GLUCOSE 107 mg/dl (70-220); POTASSIUM 3.9 mmol/L (3.5-5.1); SODIUM 128 mmol/L (135-144); TOTAL PROTEIN 6.8 g/dl (6.1-8.1)
[2017-11-29] MEDS: METOPROLOL 50 MG TAB NGT ×2 (09:01→20:55)
[2017-11-29] MEDS: FUROSEMIDE 20 MG INJ IV (09:01)
[2017-11-29] MEDS: NYSTATIN SUSP 5 ML CUP PO ×5 (09:02→20:56)
[2017-11-29] MEDS: ACYCLOVIR 400 MG TAB PO ×2 (09:02→20:56)
[2017-11-29] MEDS: ASCORBIC ACID 500 MG TAB PO (09:02)
[2017-11-29] MEDS: VITAMIN B COMPLEX/VIT C CAP PO (09:02)
[2017-11-29] MEDS: GABAPENTIN 100 MG CAP PO ×3 (09:02→20:56)
[2017-11-29] MEDS: SODIUM CHLORIDE 1 GM TAB PO ×2 (09:02→20:56)
[2017-11-29] MEDS: APIXABAN 5 MG TABLET PO ×2 (09:02→20:55)
[2017-11-29] MEDS: DOCUSATE SODIUM 100 MG CAP PO (09:02)
[2017-11-29] MEDS: COLLAGENASE 5 GM (UD JAR) TOP (09:03)
[2017-11-29] MEDS: BALSAM PERU/CASTOR OIL 60 GM TUBE TOP ×2 (09:03→20:56)
[2017-11-29] MEDS: MUPIROCIN 2% 22 GM OINT TOP ×2 (09:03→20:56)
[2017-11-29] MEDS: PETROLATUM 28.35 GM JELLY TOP ×2 (09:03→20:56)
[2017-11-29] MEDS: VITAMIN A & D 5 GM OINT PACKET TOP ×2 (09:03→20:56)
[2017-11-29] MEDS: VANCOMYCIN 1.25 GM in SOD CHLORIDE 0.9% 250 ML IVPB (16:14)
[2017-11-29] MEDS: MONTELUKAST 10 MG TAB PO (20:56)
[2017-11-30] MEDS: LEVALBUTEROL (NEB) 0.63 MG/3 ML AMP HHN ×4 (02:24→21:49)
[2017-11-30] MEDS: METOCLOPRAMIDE 10 MG INJ IV ×3 (06:12→21:24)
[2017-11-30] MEDS: PANTOPRAZOLE (EC) 40 MG TAB PO (06:12)
[2017-11-30] MEDS: LEVOTHYROXINE 50 MCG TAB PO (06:12)
[2017-11-30 06:17] LABS: ADD MAN DIFF? NO
[2017-11-30 06:25] LABS: WHITE BLOOD COUNT 6.3 10^3/ul (4.8-10.8)
[2017-11-30 06:25] LABS: BASOPHILS % 0.5 % (0.0-2.0); EOSINOPHILS # 0.9 10^3/ul (0.0-0.5); HEMATOCRIT 29.9 % (42.0-52.0); HEMOGLOBIN 10.3 g/dl (14.0-18.0); LYMPHOCYTES # 1.3 10^3/ul (0.8-2.9); LYMPHOCYTES % 20.8 % (15.0-51.0); MEAN CORPUSCULAR HEMOGLOBIN 29.9 pg (29.0-33.0); MEAN CORPUSCULAR HGB CONC 34.4 g/dl (32.0-37.0); MEAN CORPUSCULAR VOLUME 86.7 fl (82.0-101.0); MONOCYTE # 0.4 10^3/ul (0.3-0.9); MONOCYTES % 6.7 % (0.0-11.0); NEUTROPHIL # 3.6 10^3/ul (1.6-7.5); NEUTROPHILS % 56.8 % (39.0-77.0); PLATELET COUNT 164 10^3/UL (140-415); RED BLOOD COUNT 3.45 10^6/ul (4.70-6.10); RED CELL DISTRIBUTION WIDTH 12.8 % (11.5-14.5)
[2017-11-30 06:47] LABS: ANION GAP 13 (5-13); BLOOD UREA NITROGEN 48 mg/dl (7-20); CALCIUM 8.5 mg/dl (8.4-10.2); CARBON DIOXIDE 23 mmol/L (21-31); CHLORIDE 92 mmol/L (97-110); GLUCOSE 137 mg/dl (70-220); SODIUM 128 mmol/L (135-144)
[2017-11-30] MEDS: NYSTATIN SUSP 5 ML CUP PO ×4 (08:25→21:20)
[2017-11-30] MEDS: COLLAGENASE 5 GM (UD JAR) TOP (08:25)
[2017-11-30] MEDS: VITAMIN A & D 5 GM OINT PACKET TOP ×2 (08:25→21:22)
[2017-11-30] MEDS: APIXABAN 5 MG TABLET PO ×2 (08:25→21:17)
[2017-11-30] MEDS: GABAPENTIN 100 MG CAP PO ×3 (08:26→21:17)
[2017-11-30] MEDS: ACYCLOVIR 400 MG TAB PO ×2 (08:26→21:19)
[2017-11-30] MEDS: VITAMIN B COMPLEX/VIT C CAP PO (08:26)
[2017-11-30] MEDS: SODIUM CHLORIDE 1 GM TAB PO ×2 (08:26→21:19)
[2017-11-30] MEDS: ASCORBIC ACID 500 MG TAB PO (08:26)
[2017-11-30] MEDS: METOPROLOL 50 MG TAB NGT ×2 (08:27→21:20)
[2017-11-30] MEDS: FUROSEMIDE 20 MG INJ IV (08:27)
[2017-11-30] MEDS: DOCUSATE SODIUM 100 MG CAP PO (08:27)
[2017-11-30] MEDS: MUPIROCIN 2% 22 GM OINT TOP ×2 (08:32→21:16)
[2017-11-30] MEDS: PETROLATUM 28.35 GM JELLY TOP ×2 (08:32→21:24)
[2017-11-30] MEDS: BALSAM PERU/CASTOR OIL 60 GM TUBE TOP ×2 (08:32→21:16)
[2017-11-30] MEDS: VANCOMYCIN 1.25 GM in SOD CHLORIDE 0.9% 250 ML IVPB (16:42)
[2017-11-30 17:51] LABS: MAGNESIUM 1.6 mg/dl (1.7-2.5)
[2017-11-30] MEDS: MONTELUKAST 10 MG TAB PO (21:17)
[2017-11-30] MEDS: ACETAMINOPHEN 325 MG TAB PO (21:22)
[2017-12-01] MEDS: LEVALBUTEROL (NEB) 0.63 MG/3 ML AMP HHN ×4 (02:17→20:00)
[2017-12-01] MEDS: METOCLOPRAMIDE 10 MG INJ IV ×3 (05:21→21:43)
[2017-12-01] MEDS: PANTOPRAZOLE (EC) 40 MG TAB PO (05:22)
[2017-12-01] MEDS: LEVOTHYROXINE 50 MCG TAB PO (05:23)
[2017-12-01 06:48] LABS: CREATININE 1.52 mg/dl (0.61-1.24)
[2017-12-01 06:48] LABS: BLOOD UREA NITROGEN 45 mg/dl (7-20)
[2017-12-01] MEDS: METOPROLOL 50 MG TAB NGT ×2 (09:21→21:11)
[2017-12-01] MEDS: ACYCLOVIR 400 MG TAB PO ×2 (09:21→21:12)
[2017-12-01] MEDS: ASCORBIC ACID 500 MG TAB PO (09:22)
[2017-12-01] MEDS: SODIUM CHLORIDE 1 GM TAB PO ×2 (09:22→21:10)
[2017-12-01] MEDS: NYSTATIN SUSP 5 ML CUP PO ×4 (09:23→21:10)
[2017-12-01] MEDS: GABAPENTIN 100 MG CAP PO ×3 (09:23→21:13)
[2017-12-01] MEDS: COLLAGENASE 5 GM (UD JAR) TOP (09:23)
[2017-12-01] MEDS: VITAMIN B COMPLEX/VIT C CAP PO (09:23)
[2017-12-01] MEDS: DOCUSATE SODIUM 100 MG CAP PO (09:23)
[2017-12-01] MEDS: APIXABAN 5 MG TABLET PO ×2 (09:24→21:12)
[2017-12-01] MEDS: MUPIROCIN 2% 22 GM OINT TOP ×2 (09:24→21:14)
[2017-12-01] MEDS: BALSAM PERU/CASTOR OIL 60 GM TUBE TOP ×2 (09:24→21:15)
[2017-12-01] MEDS: FUROSEMIDE 20 MG INJ IV (09:25)
[2017-12-01] MEDS: PETROLATUM 28.35 GM JELLY TOP (09:25)
[2017-12-01] MEDS: VITAMIN A & D 5 GM OINT PACKET TOP ×3 (09:25→22:00)
[2017-12-01] MEDS: VANCOMYCIN 1.25 GM in SOD CHLORIDE 0.9% 250 ML IVPB (16:49)
[2017-12-01] MEDS ORDERED: NYSTATIN SUSP 5 ML CUP PO (17:00)
[2017-12-01] MEDS: DOCOSANOL 2 GM CREAM TOP ×2 (17:29→21:26)
[2017-12-01] MEDS: MONTELUKAST 10 MG TAB PO (21:12)
[2017-12-02] MEDS: LEVALBUTEROL (NEB) 0.63 MG/3 ML AMP HHN ×4 (03:19→19:52)
[2017-12-02] MEDS: METOCLOPRAMIDE 10 MG INJ IV ×3 (06:03→21:25)
[2017-12-02] MEDS: LEVOTHYROXINE 50 MCG TAB PO (06:03)
[2017-12-02] MEDS: PANTOPRAZOLE (EC) 40 MG TAB PO (06:03)
[2017-12-02] MEDS: COLLAGENASE 5 GM (UD JAR) TOP (08:09)
[2017-12-02] MEDS: NYSTATIN SUSP 5 ML CUP PO ×4 (08:09→21:26)
[2017-12-02] MEDS: ASCORBIC ACID 500 MG TAB PO (08:10)
[2017-12-02] MEDS: SODIUM CHLORIDE 1 GM TAB PO ×2 (08:10→21:27)
[2017-12-02] MEDS: DOCUSATE SODIUM 100 MG CAP PO (08:10)
[2017-12-02] MEDS: FUROSEMIDE 20 MG INJ IV ×3 (08:10→18:52)
[2017-12-02] MEDS: VITAMIN B COMPLEX/VIT C CAP PO (08:10)
[2017-12-02] MEDS: GABAPENTIN 100 MG CAP PO ×3 (08:10→21:26)
[2017-12-02] MEDS: METOPROLOL 50 MG TAB NGT ×2 (08:10→21:26)
[2017-12-02] MEDS: ACYCLOVIR 400 MG TAB PO ×2 (08:10→21:26)
[2017-12-02] MEDS: APIXABAN 5 MG TABLET PO ×2 (08:10→21:27)
[2017-12-02] MEDS: DOCOSANOL 2 GM CREAM TOP ×5 (08:11→21:24)
[2017-12-02] MEDS: BALSAM PERU/CASTOR OIL 60 GM TUBE TOP ×2 (08:11→21:24)
[2017-12-02] MEDS: VITAMIN A & D 5 GM OINT PACKET TOP ×3 (08:12→21:25)
[2017-12-02] MEDS: MUPIROCIN 2% 22 GM OINT TOP ×2 (08:13→21:24)
[2017-12-02 10:36] LABS: ADD MAN DIFF? NO
[2017-12-02 10:41] LABS: WHITE BLOOD COUNT 5.4 10^3/ul (4.8-10.8)
[2017-12-02 10:41] LABS: BASOPHILS % 0.4 % (0.0-2.0); EOSINOPHILS # 0.4 10^3/ul (0.0-0.5); EOSINOPHILS % 8.1 % (0.0-7.0); HEMOGLOBIN 10.1 g/dl (14.0-18.0); LYMPHOCYTES % 18.5 % (15.0-51.0); MEAN CORPUSCULAR HEMOGLOBIN 29.4 pg (29.0-33.0); MEAN CORPUSCULAR HGB CONC 33.7 g/dl (32.0-37.0); MEAN CORPUSCULAR VOLUME 87.2 fl (82.0-101.0); MEAN PLATELET VOLUME 10.6 fl (7.4-10.4); MONOCYTE # 0.5 10^3/ul (0.3-0.9); MONOCYTES % 9.6 % (0.0-11.0); NEUTROPHIL # 3.4 10^3/ul (1.6-7.5); PLATELET COUNT 227 10^3/UL (140-415); RED BLOOD COUNT 3.44 10^6/ul (4.70-6.10); RED CELL DISTRIBUTION WIDTH 12.7 % (11.5-14.5)
[2017-12-02 11:01] LABS: ANION GAP 9 (5-13); BLOOD UREA NITROGEN 44 mg/dl (7-20); CALCIUM 8.6 mg/dl (8.4-10.2); CARBON DIOXIDE 23 mmol/L (21-31); CHLORIDE 95 mmol/L (97-110); CREATININE 1.64 mg/dl (0.61-1.24); GLUCOSE 113 mg/dl (70-220); POTASSIUM 4.2 mmol/L (3.5-5.1); SODIUM 127 mmol/L (135-144)
[2017-12-02] MEDS: VANCOMYCIN 1.25 GM in SOD CHLORIDE 0.9% 250 ML IVPB (17:42)
[2017-12-02] MEDS ORDERED: FUROSEMIDE 20 MG INJ IV (18:00)
[2017-12-02] MEDS: MONTELUKAST 10 MG TAB PO (21:27)
[2017-12-03] MEDS: LEVALBUTEROL (NEB) 0.63 MG/3 ML AMP HHN ×5 (01:12→20:42)
[2017-12-03] MEDS: METOCLOPRAMIDE 10 MG INJ IV ×3 (06:54→21:34)
[2017-12-03] MEDS: LEVOTHYROXINE 50 MCG TAB PO (06:54)
[2017-12-03] MEDS: FUROSEMIDE 20 MG INJ IV ×2 (06:54→17:10)
[2017-12-03] MEDS: PANTOPRAZOLE (EC) 40 MG TAB PO (06:54)
[2017-12-03 07:01] LABS: ADD MAN DIFF? NO
[2017-12-03 07:11] LABS: WHITE BLOOD COUNT 5.5 10^3/ul (4.8-10.8)
[2017-12-03 07:11] LABS: BASOPHILS % 0.4 % (0.0-2.0); EOSINOPHILS # 0.3 10^3/ul (0.0-0.5); EOSINOPHILS % 5.5 % (0.0-7.0); HEMATOCRIT 28.8 % (42.0-52.0); LYMPHOCYTES # 1.3 10^3/ul (0.8-2.9); LYMPHOCYTES % 23.9 % (15.0-51.0); MEAN CORPUSCULAR HGB CONC 34.7 g/dl (32.0-37.0); MEAN CORPUSCULAR VOLUME 86.5 fl (82.0-101.0); MEAN PLATELET VOLUME 10.6 fl (7.4-10.4); MONOCYTE # 0.6 10^3/ul (0.3-0.9); MONOCYTES % 11.6 % (0.0-11.0); NEUTROPHIL # 3.2 10^3/ul (1.6-7.5); NEUTROPHILS % 58.4 % (39.0-77.0); PLATELET COUNT 250 10^3/UL (140-415); RED BLOOD COUNT 3.33 10^6/ul (4.70-6.10); RED CELL DISTRIBUTION WIDTH 12.8 % (11.5-14.5)
[2017-12-03 07:49] LABS: MAGNESIUM 1.6 mg/dl (1.7-2.5)
[2017-12-03 07:55] LABS: ANION GAP 10 (5-13); BLOOD UREA NITROGEN 48 mg/dl (7-20); CALCIUM 8.4 mg/dl (8.4-10.2); CARBON DIOXIDE 25 mmol/L (21-31); CHLORIDE 93 mmol/L (97-110); CREATININE 1.64 mg/dl (0.61-1.24); GLUCOSE 111 mg/dl (70-220); POTASSIUM 4.4 mmol/L (3.5-5.1); SODIUM 128 mmol/L (135-144)
[2017-12-03] MEDS: GABAPENTIN 100 MG CAP PO ×3 (08:35→21:34)
[2017-12-03] MEDS: VITAMIN A & D 5 GM OINT PACKET TOP ×3 (08:35→21:34)
[2017-12-03] MEDS: NYSTATIN SUSP 5 ML CUP PO ×4 (08:35→21:34)
[2017-12-03] MEDS: ACYCLOVIR 400 MG TAB PO ×2 (08:36→21:34)
[2017-12-03] MEDS: VITAMIN B COMPLEX/VIT C CAP PO (08:36)
[2017-12-03] MEDS: DOCUSATE SODIUM 100 MG CAP PO (08:36)
[2017-12-03] MEDS: APIXABAN 5 MG TABLET PO ×2 (08:36→21:34)
[2017-12-03] MEDS: COLLAGENASE 5 GM (UD JAR) TOP (08:37)
[2017-12-03] MEDS: MUPIROCIN 2% 22 GM OINT TOP ×2 (08:37→21:36)
[2017-12-03] MEDS: SODIUM CHLORIDE 1 GM TAB PO ×2 (08:37→21:34)
[2017-12-03] MEDS: ASCORBIC ACID 500 MG TAB PO (08:37)
[2017-12-03] MEDS: METOPROLOL 50 MG TAB NGT ×2 (08:37→21:35)
[2017-12-03] MEDS: DOCOSANOL 2 GM CREAM TOP ×5 (08:37→21:36)
[2017-12-03] MEDS: BALSAM PERU/CASTOR OIL 60 GM TUBE TOP ×2 (08:38→21:36)
[2017-12-03] MEDS: VANCOMYCIN 1.25 GM in SOD CHLORIDE 0.9% 250 ML IVPB (16:23)
[2017-12-03] MEDS: MAGNESIUM SULFATE 1 GM/D5W 100 ML IVPB (16:27)
[2017-12-03] MEDS: MONTELUKAST 10 MG TAB PO (21:34)
[2017-12-04] MEDS: LEVALBUTEROL (NEB) 0.63 MG/3 ML AMP HHN ×4 (01:59→21:10)
[2017-12-04] MEDS: LEVOTHYROXINE 50 MCG TAB PO (06:24)
[2017-12-04] MEDS: FUROSEMIDE 20 MG INJ IV (06:24)
[2017-12-04] MEDS: PANTOPRAZOLE (EC) 40 MG TAB PO (06:24)
[2017-12-04] MEDS: METOCLOPRAMIDE 10 MG INJ IV ×3 (06:24→22:39)
[2017-12-04 07:25] LABS: ADD MAN DIFF? NO
[2017-12-04 07:29] LABS: WHITE BLOOD COUNT 4.8 10^3/ul (4.8-10.8)
[2017-12-04 07:29] LABS: BASOPHILS % 0.4 % (0.0-2.0); EOSINOPHILS # 0.3 10^3/ul (0.0-0.5); EOSINOPHILS % 6.5 % (0.0-7.0); HEMOGLOBIN 9.9 g/dl (14.0-18.0); LYMPHOCYTES # 1.3 10^3/ul (0.8-2.9); LYMPHOCYTES % 27.9 % (15.0-51.0); MEAN CORPUSCULAR HEMOGLOBIN 29.5 pg (29.0-33.0); MEAN CORPUSCULAR HGB CONC 34.1 g/dl (32.0-37.0); MEAN CORPUSCULAR VOLUME 86.3 fl (82.0-101.0); MEAN PLATELET VOLUME 10.2 fl (7.4-10.4); MONOCYTE # 0.6 10^3/ul (0.3-0.9); MONOCYTES % 12.4 % (0.0-11.0); NEUTROPHIL # 2.5 10^3/ul (1.6-7.5); NEUTROPHILS % 52.6 % (39.0-77.0); PLATELET COUNT 252 10^3/UL (140-415); RED BLOOD COUNT 3.36 10^6/ul (4.70-6.10); RED CELL DISTRIBUTION WIDTH 12.9 % (11.5-14.5)
[2017-12-04 07:47] LABS: ANION GAP 9 (5-13); BLOOD UREA NITROGEN 50 mg/dl (7-20); CALCIUM 8.3 mg/dl (8.4-10.2); CARBON DIOXIDE 26 mmol/L (21-31); CHLORIDE 91 mmol/L (97-110); CREATININE 1.84 mg/dl (0.61-1.24); GLUCOSE 121 mg/dl (70-220); POTASSIUM 4.3 mmol/L (3.5-5.1); SODIUM 126 mmol/L (135-144)
[2017-12-04 07:53] LABS: MAGNESIUM 1.7 mg/dl (1.7-2.5)
[2017-12-04] MEDS: VITAMIN B COMPLEX/VIT C CAP PO (08:37)
[2017-12-04] MEDS: NYSTATIN SUSP 5 ML CUP PO ×4 (08:37→22:41)
[2017-12-04] MEDS: ACYCLOVIR 400 MG TAB PO ×2 (08:37→22:40)
[2017-12-04] MEDS: APIXABAN 5 MG TABLET PO ×2 (08:37→22:40)
[2017-12-04] MEDS: VITAMIN A & D 5 GM OINT PACKET TOP ×3 (08:37→22:39)
[2017-12-04] MEDS: GABAPENTIN 100 MG CAP PO ×3 (08:38→22:39)
[2017-12-04] MEDS: DOCUSATE SODIUM 100 MG CAP PO (08:38)
[2017-12-04] MEDS: METOPROLOL 50 MG TAB NGT ×2 (08:38→22:41)
[2017-12-04] MEDS: ASCORBIC ACID 500 MG TAB PO (08:38)
[2017-12-04] MEDS: SODIUM CHLORIDE 1 GM TAB PO ×2 (08:38→22:39)
[2017-12-04] MEDS: BALSAM PERU/CASTOR OIL 60 GM TUBE TOP ×2 (08:39→22:42)
[2017-12-04] MEDS: MUPIROCIN 2% 22 GM OINT TOP ×2 (08:39→22:42)
[2017-12-04] MEDS: COLLAGENASE 5 GM (UD JAR) TOP (08:40)
[2017-12-04] MEDS: DOCOSANOL 2 GM CREAM TOP ×5 (08:40→22:42)
[2017-12-04] MEDS: [UNRECOGNIZED DRUG - REMARK] XX ×2 (10:00→21:00)
[2017-12-04] MEDS: ACETAMINOPHEN 325 MG TAB PO (13:52)
[2017-12-04] MEDS: MONTELUKAST 10 MG TAB PO (22:40)
[2017-12-05] MEDS: traMADol 50 MG TAB PO ×2 (00:43→22:16)
[2017-12-05] MEDS: LEVALBUTEROL (NEB) 0.63 MG/3 ML AMP HHN ×2 (01:28→08:00)
[2017-12-05] MEDS: LEVOTHYROXINE 50 MCG TAB PO (06:34)
[2017-12-05] MEDS: PANTOPRAZOLE (EC) 40 MG TAB PO (06:34)
[2017-12-05] MEDS: METOCLOPRAMIDE 10 MG INJ IV ×3 (06:34→22:11)
[2017-12-05] MEDS: SODIUM CHLORIDE 1 GM TAB PO ×2 (08:37→21:00)
[2017-12-05] MEDS: GABAPENTIN 100 MG CAP PO ×3 (08:37→22:09)
[2017-12-05] MEDS: VITAMIN A & D 5 GM OINT PACKET TOP ×3 (08:37→22:11)
[2017-12-05] MEDS: DOCUSATE SODIUM 100 MG CAP PO (08:37)
[2017-12-05] MEDS: APIXABAN 5 MG TABLET PO ×2 (08:37→22:08)
[2017-12-05] MEDS: NYSTATIN SUSP 5 ML CUP PO ×4 (08:37→22:10)
[2017-12-05] MEDS: ACYCLOVIR 400 MG TAB PO ×2 (08:37→22:09)
[2017-12-05] MEDS: BALSAM PERU/CASTOR OIL 60 GM TUBE TOP ×2 (08:38→22:11)
[2017-12-05] MEDS: COLLAGENASE 5 GM (UD JAR) TOP (08:38)
[2017-12-05] MEDS: MUPIROCIN 2% 22 GM OINT TOP ×2 (08:38→22:10)
[2017-12-05] MEDS: DOCOSANOL 2 GM CREAM TOP ×5 (08:38→22:09)
[2017-12-05] MEDS: METOPROLOL 50 MG TAB NGT ×2 (08:39→22:09)
[2017-12-05] MEDS: [UNRECOGNIZED DRUG - REMARK] XX ×2 (09:00→21:00)
[2017-12-05 09:44] LABS: ANION GAP 11 (5-13); BLOOD UREA NITROGEN 49 mg/dl (7-20); CALCIUM 8.6 mg/dl (8.4-10.2); CARBON DIOXIDE 25 mmol/L (21-31); CHLORIDE 93 mmol/L (97-110); CREATININE 1.76 mg/dl (0.61-1.24); GLUCOSE 103 mg/dl (70-220); POTASSIUM 4.4 mmol/L (3.5-5.1); SODIUM 129 mmol/L (135-144)
[2017-12-06] MEDS: PANTOPRAZOLE (EC) 40 MG TAB PO (06:33)
[2017-12-06] MEDS: LEVOTHYROXINE 50 MCG TAB PO (06:33)
[2017-12-06 06:35] LABS: ANION GAP 8 (5-13); BLOOD UREA NITROGEN 45 mg/dl (7-20); CALCIUM 8.4 mg/dl (8.4-10.2); CARBON DIOXIDE 26 mmol/L (21-31); CHLORIDE 95 mmol/L (97-110); GLUCOSE 101 mg/dl (70-220); POTASSIUM 4.7 mmol/L (3.5-5.1); SODIUM 129 mmol/L (135-144)
[2017-12-06] MEDS: METOCLOPRAMIDE 10 MG INJ IV ×3 (06:35→22:09)
[2017-12-06] MEDS: NYSTATIN SUSP 5 ML CUP PO ×4 (09:00→20:47)
[2017-12-06] MEDS: [UNRECOGNIZED DRUG - REMARK] XX ×2 (09:00→21:00)
[2017-12-06] MEDS: ACYCLOVIR 400 MG TAB PO (09:31)
[2017-12-06] MEDS: SODIUM CHLORIDE 1 GM TAB PO ×2 (09:31→20:48)
[2017-12-06] MEDS: GABAPENTIN 100 MG CAP PO ×3 (09:31→20:48)
[2017-12-06] MEDS: DOCUSATE SODIUM 100 MG CAP PO (09:31)
[2017-12-06] MEDS: APIXABAN 5 MG TABLET PO ×2 (09:32→20:48)
[2017-12-06] MEDS: BALSAM PERU/CASTOR OIL 60 GM TUBE TOP ×2 (09:32→20:48)
[2017-12-06] MEDS: VITAMIN A & D 5 GM OINT PACKET TOP ×3 (09:32→20:48)
[2017-12-06] MEDS: DOCOSANOL 2 GM CREAM TOP ×5 (09:33→20:48)
[2017-12-06] MEDS: MUPIROCIN 2% 22 GM OINT TOP ×2 (09:33→20:56)
[2017-12-06] MEDS: METOPROLOL 50 MG TAB NGT ×2 (09:34→20:47)
[2017-12-06] MEDS: FUROSEMIDE 20 MG TAB PO (17:59)
[2017-12-06] MEDS: TAMSULOSIN (SR) 0.4 MG CAP PO (20:47)
[2017-12-07] MEDS: METOCLOPRAMIDE 10 MG INJ IV ×3 (05:52→22:37)
[2017-12-07] MEDS: LEVOTHYROXINE 50 MCG TAB PO (05:52)
[2017-12-07] MEDS: BISACODYL (EC) 5 MG TAB PO (05:53)
[2017-12-07] MEDS: FUROSEMIDE 20 MG TAB PO ×2 (05:53→17:16)
[2017-12-07] MEDS: PANTOPRAZOLE (EC) 40 MG TAB PO (05:53)
[2017-12-07] MEDS: METOPROLOL 50 MG TAB NGT (08:09)
[2017-12-07] MEDS: GABAPENTIN 100 MG CAP PO ×3 (08:12→20:48)
[2017-12-07] MEDS: NYSTATIN SUSP 5 ML CUP PO ×4 (08:12→20:48)
[2017-12-07] MEDS: SODIUM CHLORIDE 1 GM TAB PO ×2 (08:12→20:48)
[2017-12-07] MEDS: DOCUSATE SODIUM 100 MG CAP PO (08:12)
[2017-12-07] MEDS: APIXABAN 5 MG TABLET PO ×2 (08:12→20:48)
[2017-12-07] MEDS: MUPIROCIN 2% 22 GM OINT TOP ×2 (08:13→20:50)
[2017-12-07] MEDS: [UNRECOGNIZED DRUG - REMARK] XX ×2 (08:13→21:00)
[2017-12-07] MEDS: BALSAM PERU/CASTOR OIL 60 GM TUBE TOP ×2 (08:13→20:50)
[2017-12-07] MEDS: VITAMIN A & D 5 GM OINT PACKET TOP ×3 (08:13→20:50)
[2017-12-07] MEDS: DOCOSANOL 2 GM CREAM TOP ×5 (08:14→20:50)
[2017-12-07 08:15] LABS: ANION GAP 10 (5-13); BLOOD UREA NITROGEN 43 mg/dl (7-20); CALCIUM 8.8 mg/dl (8.4-10.2); CARBON DIOXIDE 26 mmol/L (21-31); CHLORIDE 93 mmol/L (97-110); CREATININE 1.71 mg/dl (0.61-1.24); GLUCOSE 104 mg/dl (70-220); POTASSIUM 4.3 mmol/L (3.5-5.1); SODIUM 129 mmol/L (135-144)
[2017-12-07] MEDS: TAMSULOSIN (SR) 0.4 MG CAP PO (20:48)
[2017-12-07] MEDS: METOPROLOL 25 MG TAB NGT (22:38)
[2017-12-07] MEDS: ZOLPIDEM 5 MG TAB PO (22:49)
[2017-12-08] MEDS: LEVALBUTEROL (NEB) 0.63 MG/3 ML AMP HHN (01:43)
[2017-12-08] MEDS: METOCLOPRAMIDE 10 MG INJ IV ×2 (06:31→13:04)
[2017-12-08] MEDS: LEVOTHYROXINE 50 MCG TAB PO (06:31)
[2017-12-08] MEDS: FUROSEMIDE 20 MG TAB PO ×2 (06:31→18:07)
[2017-12-08] MEDS: PANTOPRAZOLE (EC) 40 MG TAB PO (06:32)
[2017-12-08 07:27] LABS: ADD MAN DIFF? NO
[2017-12-08 07:28] LABS: WHITE BLOOD COUNT 5.8 10^3/ul (4.8-10.8)
[2017-12-08 07:28] LABS: BASOPHILS % 0.3 % (0.0-2.0); EOSINOPHILS # 0.7 10^3/ul (0.0-0.5); EOSINOPHILS % 12.4 % (0.0-7.0); HEMATOCRIT 26.7 % (42.0-52.0); HEMOGLOBIN 9.3 g/dl (14.0-18.0); LYMPHOCYTES # 1.6 10^3/ul (0.8-2.9); LYMPHOCYTES % 28.1 % (15.0-51.0); MEAN CORPUSCULAR HEMOGLOBIN 29.7 pg (29.0-33.0); MEAN CORPUSCULAR HGB CONC 34.8 g/dl (32.0-37.0); MEAN CORPUSCULAR VOLUME 85.3 fl (82.0-101.0); MEAN PLATELET VOLUME 9.8 fl (7.4-10.4); MONOCYTE # 0.8 10^3/ul (0.3-0.9); MONOCYTES % 14.1 % (0.0-11.0); NEUTROPHIL # 2.6 10^3/ul (1.6-7.5); NEUTROPHILS % 44.9 % (39.0-77.0); PLATELET COUNT 255 10^3/UL (140-415); RED BLOOD COUNT 3.13 10^6/ul (4.70-6.10); RED CELL DISTRIBUTION WIDTH 12.8 % (11.5-14.5)
[2017-12-08 08:16] LABS: ANION GAP 12 (5-13); BLOOD UREA NITROGEN 45 mg/dl (7-20); CALCIUM 8.4 mg/dl (8.4-10.2); CARBON DIOXIDE 25 mmol/L (21-31); CHLORIDE 91 mmol/L (97-110); CREATININE 1.59 mg/dl (0.61-1.24); GLUCOSE 114 mg/dl (70-220); POTASSIUM 3.9 mmol/L (3.5-5.1); SODIUM 128 mmol/L (135-144)
[2017-12-08] MEDS: NYSTATIN SUSP 5 ML CUP PO ×3 (08:34→18:07)
[2017-12-08] MEDS: SODIUM CHLORIDE 1 GM TAB PO (08:34)
[2017-12-08] MEDS: DOCUSATE SODIUM 100 MG CAP PO (08:34)
[2017-12-08] MEDS: VITAMIN A & D 5 GM OINT PACKET TOP ×2 (08:35→13:03)
[2017-12-08] MEDS: APIXABAN 5 MG TABLET PO (08:35)
[2017-12-08] MEDS: MUPIROCIN 2% 22 GM OINT TOP (08:35)
[2017-12-08] MEDS: BALSAM PERU/CASTOR OIL 60 GM TUBE TOP (08:35)
[2017-12-08] MEDS: DOCOSANOL 2 GM CREAM TOP ×4 (08:36→18:07)
[2017-12-08] MEDS: [UNRECOGNIZED DRUG - REMARK] XX (08:37)
[2017-12-08] MEDS: METOPROLOL 25 MG TAB NGT (09:15)
== END 2017-12-08 19:24 | disposition home health service (06) | DRG 291 ==
LOC: PP2 11-13 15:35 → ICU 11-20 15:14 → TEL 11-22 23:45 → E/R 16:20 → TEL 18:00
PROC: 0T9B70Z Drainage of Bladder with Drainage Device, Via Natural or Artificial Opening (ICD-10-PCS; principal; 2017-12-04)
DX: I13.0 Hypertensive heart and chronic kidney disease with heart failure and stage 1 through stage 4 chronic kidney disease, or unspecified chronic kidney disease (principal); I50.23 Acute on chronic systolic (congestive) heart failure; G93.41 Metabolic encephalopathy; J15.1 Pneumonia due to Pseudomonas; J15.212 Pneumonia due to Methicillin resistant Staphylococcus aureus; A41.81 Sepsis due to Enterococcus; R65.20 Severe sepsis without septic shock; B37.1 Pulmonary candidiasis; N17.9 Acute kidney failure, unspecified; J44.1 Chronic obstructive pulmonary disease with (acute) exacerbation; E87.2 Acidosis; L97.829 Non-pressure chronic ulcer of other part of left lower leg with unspecified severity; L97.819 Non-pressure chronic ulcer of other part of right lower leg with unspecified severity; E87.1 Hypo-osmolality and hyponatremia; B19.10 Unspecified viral hepatitis B without hepatic coma; L03.116 Cellulitis of left lower limb; L03.115 Cellulitis of right lower limb; B95.2 Enterococcus as the cause of diseases classified elsewhere; B00.1 Herpesviral vesicular dermatitis; D64.9 Anemia, unspecified; E87.70 Fluid overload, unspecified; E78.5 Hyperlipidemia, unspecified; E16.2 Hypoglycemia, unspecified; E87.5 Hyperkalemia; E03.9 Hypothyroidism, unspecified; E83.42 Hypomagnesemia; I73.9 Peripheral vascular disease, unspecified; I48.0 Paroxysmal atrial fibrillation; I42.9 Cardiomyopathy, unspecified; I25.10 Atherosclerotic heart disease of native coronary artery without angina pectoris; I87.8 Other specified disorders of veins; K76.0 Fatty (change of) liver, not elsewhere classified; K59.00 Constipation, unspecified; N18.3 Chronic kidney disease, stage 3 (moderate); R33.9 Retention of urine, unspecified; R53.81 Other malaise; Z90.49 Acquired absence of other specified parts of digestive tract; Z87.891 Personal history of nicotine dependence
CPT/HCPCS: 36415; 36600; 70450; 71045; 76705; 80048; 80053; 80202; 82140; 82550; 82553; 82565; 82803; 82962; 83605; 83735; 83880; 84100; 84295; 84439; 84443; 84450; 84460; 84480; 84484; 84520; 85025; 85610; 85730; 86704; 86709; 86803; 87040; 87070; 87081; 87086; 87340; 92526; 92610; 93005; 94640; 94664; 96374; 97110; 97116; 97162; 97530; 99291-25